=== PATIENT | female | born 1945 | race Caucasian/White ===

== ENCOUNTER → 2023-05-16 11:53 | Outpatient (REF) | payer OTHER, SELFPAY ==
[2023-05-16 12:05] LABS: Blood Urea Nitrogen 10 mg/dl (7-17); Carbon Dioxide 25 mmol/L (22-30); Chloride 100 mmol/L (98-107); Glomerular Filtration Rate > 60.0; Glucose 119 mg/dl (70-99); Potassium 4.1 mmol/L (3.5-5.1); Sodium 135 mmol/L (135-145)
== END ==
LOC: OIDL 11:53
PROVIDERS: ATTENDING PHYSICIAN Internal Medicine Hematology & Oncology
DX: C50.912 Malignant neoplasm of unspecified site of left female breast (principal)
CPT/HCPCS: 80048

== ENCOUNTER 2023-08-21 09:30 | Emergency (ER) | payer OTHER, SELFPAY ==
[2023-08-21] VITALS (12 sets, daily range): BP systolic 79–136; BP diastolic 44–99; PULSE 78–90; BMI 23.2
--- NOTE | 2023-08-21 10:00 | EDRN ---
IV team paged to come access patient's port. Patient assisted to bedside commode. Patient stated that she felt slightly dizzy when she stood up.
--- NOTE | 2023-08-21 11:05 | VATNOTE ---
Left chest SQ port access as requested. Flushes well, unable to withdraw labs despite normal efforts. Patient states port has need TPA in the past. PCN updated, request made for Ellis hassan.
--- NOTE | 2023-08-21 11:43 | ED.GENMED ---
History of Present Illness
General
Chief Complaint: Dizziness
Source: patient and spouse
Exam Limitations: none
Time Seen by Provider: 08/21/23 11:13
Nursing documentation reviewed up to this point in time: agreed with
Travel History
Have you had any contact with someone who has COVID-19?: No
Do you have any symptoms of coronavirus? Fever > 100 degrees, chills, cough, shortness of breath, sore throat, loss of taste or smell, muscle aches, or headache?: No
History of Present Illness
History of Present Illness:
78-year-old female with metastatic breast CA under the care of Dr. Briones oncology currently receiving chemotherapy Orserdu for the past 2 months presents because states he called EMS due to the fact that the patient had several episodes
of shaking, eyes rolling back, significant weakness. Patient both agree that she gets these episodes intermittently and after receiving IV fluids she 'snaps out of it' and feels better. Pt states 'I have orthostatic problems.' She did have
IV fluid infusion 4 days ago through her left upper chest wall port after similar episode and felt better afterwards.
Denies fever/chills, denies n/v/d/c. Denies UTI symptoms.
Did start medical marijuana yesterday 5 mg q 4 hr prn and had two doses that states 'knocked her senseless' and she slept all day. Being weaned off Oxycodone.
Last visit with Oncology [facility]INE [facility]ER 2 weeks ago, aware of these episodes
Next visit with Dr. Briones
Past History
Past History
ED Past Medical History: Cancer (Metastatic breast cancer) and COPD
ED Past Surgical History: Appendectomy, Orthopedic and Other (b/l lumpectomy)
Social History
Tobacco: Former smoker
Alcohol: None
Drug: None
Personal:
Living: with family
Employment: Not employed
Family History
Family History: Other (n/c)
Review of Systems
Review of Systems
Allergies reviewed?: Yes
All Other Systems: ROS reviewed and negative except as documented in HPI and ROS
Constitutional: Reports fatigue; Denies fever
EENT: Denies sore throat
Respiratory: Denies cough or trouble breathing
Cardiac: Denies chest pain or syncope
ABD/GI: Denies abdominal pain, nausea, vomiting, diarrhea or constipated
: Denies dysuria, difficulty voiding or urgency
Musculoskeletal: Reports no symptoms
Skin: Reports no symptoms
Neurological: Reports weakness (Generalized weakness)
Phy Exam
Physical Exam
Physical Exam:
GENERAL: No acute distress. A&Ox3. Cachectic appearing.
CONSTITUTIONAL: Afebrile.
EYES: PERRL, conjunctivae normal
ENMT: dry mucus membranes
RESPIRATORY: Regular respirations, nonlabored, lungs clear.
CARDIOVASCULAR: Regular rate and rhythm, no murmurs, no rubs.
GI: Soft, nontender, normal BS
MUSCULOSKELETAL: Moves with ease. Well perfused.
SKIN: Warm, dry, pink. Access port left upper chest wall.
PSYCH: Normal mood and affect. Well kept, interactive and appropriate
NEUROLOGIC: Awake, alert and oriented. No focal neurological deficits
Course
Orders/Labs/Results
Orders:
Orders
08/21/23 09:47
EKG [Electrocardiogram (*1)] Urgent
Reason for Study: Vertigo / Dizzy
EKG- Treatment ONCE
08/21/23 11:40
Lorazepam [Ativan] 0.5 mg PO NOW STA
Oxycodone [Roxicodone] 5 mg PO NOW STA
08/21/23 11:53
CMP [Comprehensive Metabolic Panel] Urgent
Complete Blood Count/With Diff Urgent
08/21/23 11:59
0.9% Sodium Chloride 1000 ml [Nss] 1,000 ml IV BOLUS
08/21/23 13:02
Alteplase [Cathflo/Activase] 2 mg IV NOW STA
08/21/23 14:58
Case Management Consult ONCE
Case Management Consult: Discharge Planning
Requested By:: PHYSICIAN
08/21/23 15:42
Heparin Pf [Heparin Lock Flush] 500 unit IV NOW ONE
Abnormal Lab Results
08/21/23
11:53
Absolute Neuts (auto) 7.3 H 10^3/uL
(1.4-6.5)
Absolute Monos (auto) 0.9 H 10^3/uL
(0.1-0.6)
Glucose 114 H mg/dl
(70-99)
Calcium 10.3 H mg/dl
(8.4-10.2)
AST 37 H U/L
(14-36)
08/21/23 11:53
08/21/23 11:53
Vital Signs
Initial and Last Documented VS:
Initial Vital Signs
Temp Pulse Resp BP Pulse Ox
97.8 F 74 20 84/71 98
08/21/23 09:39 08/21/23 09:39 08/21/23 09:39 08/21/23 09:39 08/21/23 09:39
Last Documented Vital Signs
Temp Pulse Resp BP Pulse Ox
98.1 F 79 18 99/59 99
08/21/23 16:04 08/21/23 16:04 08/21/23 16:04 08/21/23 15:23 08/21/23 16:04
MDM/Problems Addressed
Differential Diagnosis Includes:
Dehydration
MDM/Problems Addressed:
78-year-old female with metastatic breast CA under the care of Dr. Briones oncology currently receiving chemotherapy Orserdu for the past 2 months presents because states he called EMS due to the fact that the patient had several episodes
of shaking, eyes rolling back, significant weakness. Patient both agree that she gets these episodes intermittently and after receiving IV fluids she 'snaps out of it' and feels better. Pt states 'I have orthostatic problems.' She did have
IV fluid infusion 4 days ago through her left upper chest wall port after similar episode and felt better afterwards.
Denies fever/chills, denies n/v/d/c. Denies UTI symptoms.
Did start medical marijuana yesterday 5 mg q 4 hr prn and had two doses that states 'knocked her senseless' and she slept all day. Being weaned off Oxycodone.
Last visit with Oncology [facility] [facility] [facility]ER 2 weeks ago, aware of these episodes
Next visit with Dr. Briones is
EKG normal sinus rhythm, L axis dev, no change
08/21/2023 1302 PM
CBC normal
CMP normal
08/21/2023 1444 PM
After 1 L of IV fluids patient states she is feeling much better. She is sitting up and eating a salad and drinking
Since she feels so much better after IV fluids when she has these episodes, she and her are wondering if she can get IV fluids on a regular basis perhaps at home with visiting nurse as opposed to having to go into oncology office consulted
Dr. Briones
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
Patient is already down 60% with her narcotic use.
Taking Midodrine as ordered.
Does not meet criteria for home IV infusions.
Pt is in Palliative Care with Dr. Robledo
states daughter stayed with them in July but now he is home alone with her and is afraid he won't be able to help her during these episodes, or when she gets up at night to go to [facility] he needs help, etc
They both agree that they could do some help at home
Consulted Case Management to see if can get help at home.
08/21/2023 1524 PM
Case Management in , info provided to .
They are comfortable going home
Has appt. with Dr. Briones in 6 days.
*EKG
EKG Intrepretation Date: 08/21/23
Interpretation: abnormal
Comparison EKG: no changes
Rate: normal
Rhythm: sinus
Shoals: left axis deviation
Interval: normal interval
QRS Pattern: normal QRS
Ischemia: no ischemia
*Critical Care Note
Total Time (30-74mins, 75-104mins- exclusive of procedures): Not Applicable
ED Attending Note
-
Portions of this chart may have been created with voice recognition software.� Occasional wrong word or��sound alike� substitutions may have occurred due to the inherent limitations of voice recognition software.
Discharge Plan
Departure
Patient Disposition: Home (Routine Discharge)
Date of Disposition: 08/21/23
Time of Disposition: 15:20
Patient with high blood pressure during this ER visit?: No
Condition: Good
Discharge Problem:
Episode of generalized weakness
Instructions: Generalized Weakness
Prescriptions:
No Action
aspirin 81 MG tablet,delayed release (DR/EC)
81 mg PO QPM
citalopram 20 MG tablet
20 mg PO DAILY
omeprazole 20 MG capsule,delayed release(DR/EC)
20 mg PO BID
melatonin 5 MG tablet
5 mg PO HS
famotidine 40 mg Tablet
40 mg PO QPM
Gentle Iron 28 mg iron-60mg -400 mcg-8 mcg Capsule
1 cap PO QPM
Xgeva 120 mg/1.7 mL (70 mg/mL) Solution
120 mg SC Q4W
Probiotic
755 mg PO QPM
levalbuterol tartrate 45 mcg/actuation Hfa Aerosol Inhaler
2 puff INHALATION R Q4HPRN PRN (Reason: sob)
sennosides [Senokot] 8.6 mg Tablet
8.6 mg PO BID PRN (Reason: Constipation)
glucosamine sulfate [Glucosamine] 500 mg Tablet
500 mg PO QPM
therapeutic multivitamin Tablet
1 tab PO DAILY
simvastatin 40 mg Tablet
40 mg PO QPM
acetaminophen 650 mg Tablet Extended Release
1,300 mg PO BIDPRN PRN (Reason: mild pain)
lorazepam 0.5 mg Tablet
0.5 mg PO HS PRN (Reason: anxiety)
Patient Comments:
07/25/2023: last filled 05/31/23, 30 tabs for 30 days
calcium carbonate 500 mg calcium (1,250 mg) Tablet
500 mg PO BID
docusate sodium [Stool Softener] 100 mg Capsule
100 mg PO BID PRN (Reason: Constipation)
gabapentin 100 mg Capsule
200 mg PO DAILY
bupropion HCl 150 mg Tablet Extended Release 24 Hr
150 mg PO DAILY
cholecalciferol (vitamin D3) 50 mcg (2,000 unit) Tablet
75 mcg PO DAILY
fluticasone furoate-vilanterol [Breo Ellipta] 100-25 mcg/dose Blister With Device
1 inh INHALATION R DAILY
Patient Comments:
05/21/2023, patient states that they should take this every day but that they forget sometimes.
Ellura capsule
36 mg PO QPM
methenamine hippurate 1 gram tablet
1 g PO BID
gabapentin 100 mg capsule
300 mg PO QPM
oxycodone 5 mg tablet
5 mg PO Q4H
Patient Comments:
07/25/2023: last filled 07/20/23, 180 tabs for 30 days from [id number]
Rx Instructions:
@0130,0530,0930,1330,1730,2130
midodrine 10 mg tablet
10 mg PO TID
Phosphorus
200 mg PO DAILY
levothyroxine 100 mcg capsule
100 mcg PO DAILY Qty: 30 0RF
Rx Instructions:
dose decreased on this admission
Referrals:
Namrata Briones MD [Active] - Keep scheduled appt
Gely Horvath, [Family Provider] -
Activity Restrictions/Additional Instructions:
As we discussed, your lab work shows nothing worrisome.
Continue to drink as much as you can.
Keep your appointment with Dr. Briones next week.
Interventions
Interventions:
*Risk Screen - Suicide Last Done: 08/21/23 09:39
*General Assessment Last Done: 08/21/23 10:09
*Neglect/Abuse Screening Last Done: 08/21/23 09:39
ED- Fall Risk Assessment Last Done: 08/21/23 10:09
*ED COVID-19 Vaccine History Last Done: 08/21/23 09:39
*Nursing Disposition Last Done: 08/21/23 16:04
ED- Neurological Assessment Last Done: 08/21/23 10:09
ED- Cardiac Assessment Last Done: 08/21/23 10:09
ED Swallowing Screen Last Done: 08/21/23 11:59
Discharge Date and Time
Discharge Date/Time: 08/21/23 16:05
[2023-08-21] MEDS: ROXICODONE 5 MG PO (12:01)
[2023-08-21] MEDS: ATIVAN 0.5 MG PO (12:01)
[2023-08-21] MEDS: NSS 1000 IV (12:07)
[2023-08-21 12:08] LABS: % Basophils 0.6 % (0-2); % Immature Granulocytes 0.4 % (0-0.5); % Lymphocytes 20.6 % (20.5-51.1); % Monocytes 8.3 % (1.7-9.3); % Neutrophils 69.1 % (42.2-75.2); Absolute Basophils 0.1 10^3/uL (0-0.2); Absolute Eosinophils 0.1 10^3/uL (0-0.7); Absolute Lymphocytes 2.2 10^3/uL (1.2-3.4); Absolute Monocytes 0.9 10^3/uL (0.1-0.6); Absolute Neutrophils 7.3 10^3/uL (1.4-6.5); Hematocrit 43.3 % (37.0-47.0); Hemoglobin 14.4 g/dL (12.0-16.0); Mean Corp Hgb Conc. 33.3 g/dL (33.0-37.0); Mean Corpuscular Volume 93.3 fL (81.0-99.0); Mean Platelet Volume 9.6 fL (7.4-10.4); Nucleated Red Blood Cells % 0 %; Platelet Count 268 10^3/uL (130-400); Red Blood Cell Count 4.64 10^6/uL (4.20-5.40); White Blood Cell Count 10.6 10^3/uL (4.8-10.8)
[2023-08-21 12:23] LABS: ALT (SGPT) 19 U/L (0-35); AST (SGOT) 37 U/L (14-36); Albumin 3.8 g/dl (3.5-5.0); Alkaline Phosphatase 93 U/L (38-126); Blood Urea Nitrogen 11 mg/dl (7-17); Calcium 10.3 mg/dl (8.4-10.2); Carbon Dioxide 30 mmol/L (22-30); Chloride 102 mmol/L (98-107); Estimated Creatinine Clearance 45 ml/min; Glucose 114 mg/dl (70-99); Potassium 4.6 mmol/L (3.5-5.1); Sodium 135 mmol/L (135-145); Total Bilirubin 0.7 mg/dl (0.2-1.3); Total Protein 6.6 g/dl (6.3-8.2); eGFR > 60.00
[2023-08-21] MEDS: CATHFLO/ACTIVASE 2 MG IV (13:21)
--- NOTE | 2023-08-21 14:36 | VATNOTE ---
CathFlo given per order. Port now with brisk blood return. PCN updated.
--- NOTE | 2023-08-21 15:22 | CM ---
CM met with patient and in room. stated that he feels that patient's physical needs are becoming increasingly more difficult and would like assistance in the home. CM confirmed that patient is on service with Palliative Care and
[facility]. CM provided with written materials regarding private pay aide care.
CM will update [facility] with today's visit.
CM updated ED [employer]PERATOR.
--- NOTE | 2023-08-21 15:47 | VATNOTE ---
left subq power port deaccessed per protocol. Brisk blood return noted prior to. at bedside.
== END 2023-08-21 16:05 | disposition home or self-care (01) ==
LOC: EMR 09:30
PROVIDERS: EMERGENCY PHYSICIAN Emergency Medicine; FAMILY PHYSICIAN Family Medicine
DX: R53.1 Weakness (principal); J44.9 Chronic obstructive pulmonary disease, unspecified; Z85.3 Personal history of malignant neoplasm of breast; Z87.891 Personal history of nicotine dependence; Z90.49 Acquired absence of other specified parts of digestive tract
CPT/HCPCS: 99283; 96374; 96375; 96361; 80053; 85025; 93005; J2997

== ENCOUNTER → 2023-08-23 10:45 | Outpatient (REF) | payer OTHER, SELFPAY | LOC: PET 10:45 | PROVIDERS: ATTENDING PHYSICIAN Internal Medicine Hematology & Oncology | DX: C50.912 Malignant neoplasm of unspecified site of left female breast (principal) | CPT/HCPCS: 78815; A9552 ==

== ENCOUNTER 2023-08-26 11:18 | Emergency (ER) | payer OTHER, SELFPAY ==
[2023-08-26] VITALS (11 sets, daily range): BP systolic 86–169; BP diastolic 52–84; PULSE 53–62; BMI 24.3
[2023-08-26] MEDS: NSS 1000 IV (13:08)
[2023-08-26] MEDS: ProAmatine 10 MG PO (13:08)
--- NOTE | 2023-08-26 13:12 | ED.GENMED ---
History of Present Illness
General
Chief Complaint: Blood Pressure Problem
Source: patient
Exam Limitations: none
Time Seen by Provider: 08/26/23 12:53
Travel History
Have you had any contact with someone who has COVID-19?: No
Do you have any symptoms of coronavirus? Fever > 100 degrees, chills, cough, shortness of breath, sore throat, loss of taste or smell, muscle aches, or headache?: No
History of Present Illness
History of Present Illness:
78-year-old female with known history of metastatic breast cancer presents with recurrent orthostatic hypotension and syncopal episode today getting out of bed. She denies headache chest pain or shortness of breath. She is on midodrine 10 mg 3
times a day. They spoke with oncology and they referred her here for further evaluation. She has known mets to the liver and pelvis.
Past History
Past History
ED Past Medical History: Cancer (Metastatic breast cancer) and COPD
ED Past Surgical History: Appendectomy, Orthopedic and Other (b/l lumpectomy)
Social History
Tobacco: Former smoker
Alcohol: None
Drug: None
Personal:
Living: with family
Employment: Not employed
Family History
Family History: Other (n/c)
Phy Exam
Physical Exam
Physical Exam:
General: Well-appearing female no acute respiratory distress
HEENT: Normocephalic atraumatic
Heart: RRR, no murmurs
Lungs; CTA bilaterally
Abd: soft, nontender, nondistended
Neuro: Alert and oriented x 3.
Ext: no cyanosis
Skin; Warm, no rashes or lesions.
Course
Orders/Labs/Results
Orders:
Orders
08/26/23 12:39
Electrocardiogram (*1) Urgent
Reason for Study: Syncope
08/26/23 12:40
EKG- Treatment ONCE
08/26/23 13:03
0.9% Sodium Chloride 1000 ml [Nss] 1,000 ml IV BOLUS
Midodrine [ProAmatine] 10 mg PO NOW STA
08/26/23 13:11
CT Head W/o Iv Contrast Urgent
Comment:
Reason For Exam: syncope, history of breast CA
08/26/23 13:32
CMP [Comprehensive Metabolic Panel] Urgent
Complete Blood Count/With Diff Urgent
Abnormal Lab Results
08/26/23
13:32
RBC 4.13 L 10^6/uL
(4.20-5.40)
MCH 31.5 H pg
(27.0-31.0)
Absolute Monos (auto) 0.9 H 10^3/uL
(0.1-0.6)
Sodium 134 L mmol/L
(135-145)
Carbon Dioxide 34 H mmol/L
(22-30)
Glucose 130 H mg/dl
(70-99)
Total Protein 6.0 L g/dl
(6.3-8.2)
Albumin 3.4 L g/dl
(3.5-5.0)
08/26/23 13:32
08/26/23 13:32
Vital Signs
Initial and Last Documented VS:
Initial Vital Signs
Temp Pulse Resp BP Pulse Ox
98.8 F 59 18 114/76 100
08/26/23 11:27 08/26/23 11:27 08/26/23 11:27 08/26/23 11:27 08/26/23 11:27
Last Documented Vital Signs
Temp Pulse Resp BP Pulse Ox
98.8 F 56 16 120/59 96
08/26/23 11:27 08/26/23 14:15 08/26/23 14:15 08/26/23 14:00 08/26/23 14:15
MDM/Problems Addressed
Differential Diagnosis Includes:
Syncope. Likely orthostatic hypotension. Will check a EKG for arrhythmia placed on monitor. She will have her port accessed and will hydrate and do CT of head.
*Critical Care Note
Total Time (30-74mins, 75-104mins- exclusive of procedures): Not Applicable
Update Note
Update Note:
CT head negative. Patient feeling much better after IV hydration. Tolerating fluids. Blood pressure improved. Suspect underlying volume depletion and dehydration. Stable for discharge with oncology follow-up
ED Attending Note
-
Portions of this chart may have been created with voice recognition software.� Occasional wrong word or��sound alike� substitutions may have occurred due to the inherent limitations of voice recognition software.
Discharge Plan
Departure
Patient Disposition: Home (Routine Discharge)
Date of Disposition: 08/26/23
Time of Disposition: 15:09
Patient with high blood pressure during this ER visit?: No
Discharge Problem:
Acute dehydration
Prescriptions:
No Action
aspirin 81 MG tablet,delayed release (DR/EC)
81 mg PO QPM
citalopram 20 MG tablet
20 mg PO DAILY
omeprazole 20 MG capsule,delayed release(DR/EC)
20 mg PO BID
melatonin 5 MG tablet
5 mg PO HS
famotidine 40 mg Tablet
40 mg PO QPM
Gentle Iron 28 mg iron-60mg -400 mcg-8 mcg Capsule
1 cap PO QPM
Xgeva 120 mg/1.7 mL (70 mg/mL) Solution
120 mg SC Q4W
Probiotic
755 mg PO QPM
levalbuterol tartrate 45 mcg/actuation Hfa Aerosol Inhaler
2 puff INHALATION R Q4HPRN PRN (Reason: sob)
sennosides [Senokot] 8.6 mg Tablet
8.6 mg PO BID PRN (Reason: Constipation)
glucosamine sulfate [Glucosamine] 500 mg Tablet
500 mg PO QPM
therapeutic multivitamin Tablet
1 tab PO DAILY
simvastatin 40 mg Tablet
40 mg PO QPM
acetaminophen 650 mg Tablet Extended Release
1,300 mg PO BIDPRN PRN (Reason: mild pain)
lorazepam 0.5 mg Tablet
0.5 mg PO HS PRN (Reason: anxiety)
Patient Comments:
07/25/2023: last filled 05/31/23, 30 tabs for 30 days
calcium carbonate 500 mg calcium (1,250 mg) Tablet
500 mg PO BID
docusate sodium [Stool Softener] 100 mg Capsule
100 mg PO BID PRN (Reason: Constipation)
gabapentin 100 mg Capsule
200 mg PO DAILY
bupropion HCl 150 mg Tablet Extended Release 24 Hr
150 mg PO DAILY
cholecalciferol (vitamin D3) 50 mcg (2,000 unit) Tablet
75 mcg PO DAILY
fluticasone furoate-vilanterol [Breo Ellipta] 100-25 mcg/dose Blister With Device
1 inh INHALATION R DAILY
Patient Comments:
05/21/2023, patient states that they should take this every day but that they forget sometimes.
Ellura capsule
36 mg PO QPM
methenamine hippurate 1 gram tablet
1 g PO BID
gabapentin 100 mg capsule
300 mg PO QPM
oxycodone 5 mg tablet
5 mg PO Q4H
Patient Comments:
07/25/2023: last filled 07/20/23, 180 tabs for 30 days from [facility]#[id number]
Rx Instructions:
@0130,0530,0930,1330,1730,2130
midodrine 10 mg tablet
10 mg PO TID
Phosphorus
200 mg PO DAILY
levothyroxine 100 mcg capsule
100 mcg PO DAILY Qty: 30 0RF
Rx Instructions:
dose decreased on this admission
Referrals:
Newingham,Gely, DO [Family Provider] -
Activity Restrictions/Additional Instructions:
Please follow-up with your oncologist for further evaluation. Return if needed otherwise.
Interventions
Interventions:
*Risk Screen - Suicide Last Done: 08/26/23 12:33
*General Assessment Last Done: 08/26/23 12:33
*Neglect/Abuse Screening Last Done: 08/26/23 12:33
ED- Fall Risk Assessment Last Done: 08/26/23 12:36
*ED COVID-19 Vaccine History Last Done: 08/26/23 12:33
ED- Cardiac Assessment Last Done: 08/26/23 12:37
ED- Neurological Assessment Last Done: 08/26/23 12:37
ED- Pulmonary Assessment Last Done: 08/26/23 12:37
[2023-08-26 13:47] LABS: % Basophils 0.8 % (0-2); % Eosinophils 2.3 % (0-6); % Immature Granulocytes 0.3 % (0-0.5); % Lymphocytes 24.4 % (20.5-51.1); % Monocytes 8.9 % (1.7-9.3); % Neutrophils 63.3 % (42.2-75.2); Absolute Basophils 0.1 10^3/uL (0-0.2); Absolute Eosinophils 0.2 10^3/uL (0-0.7); Absolute Lymphocytes 2.4 10^3/uL (1.2-3.4); Absolute Monocytes 0.9 10^3/uL (0.1-0.6); Absolute Neutrophils 6.3 10^3/uL (1.4-6.5); Hematocrit 38.4 % (37.0-47.0); Mean Corp Hgb Conc. 33.9 g/dL (33.0-37.0); Mean Corpuscular Hgb 31.5 pg (27.0-31.0); Mean Platelet Volume 9.5 fL (7.4-10.4); Nucleated Red Blood Cells % 0 %; Platelet Count 261 10^3/uL (130-400); Red Blood Cell Count 4.13 10^6/uL (4.20-5.40); Red Cell Dist. Width 12.9 % (11.5-14.5)
[2023-08-26 13:52] LABS: ALT (SGPT) 19 U/L (0-35); AST (SGOT) 34 U/L (14-36); Albumin 3.4 g/dl (3.5-5.0); Alkaline Phosphatase 89 U/L (38-126); Blood Urea Nitrogen 12 mg/dl (7-17); Calcium 9.9 mg/dl (8.4-10.2); Carbon Dioxide 34 mmol/L (22-30); Chloride 101 mmol/L (98-107); Estimated Creatinine Clearance 45 ml/min; Glucose 130 mg/dl (70-99); Potassium 4.1 mmol/L (3.5-5.1); Sodium 134 mmol/L (135-145); Total Bilirubin 0.5 mg/dl (0.2-1.3); eGFR > 60.00
--- NOTE | 2023-08-26 16:43 | VATNOTE ---
Prior to deaccessing pt's port, flushed with 500 units in 5 mL heparin.
== END 2023-08-26 16:58 | disposition home or self-care (01) ==
LOC: EMR 11:18
PROVIDERS: EMERGENCY PHYSICIAN Emergency Medicine; FAMILY PHYSICIAN Family Medicine
DX: R55 Syncope and collapse (principal); E86.0 Dehydration; I95.1 Orthostatic hypotension; C50.919 Malignant neoplasm of unspecified site of unspecified female breast; C78.7 Secondary malignant neoplasm of liver and intrahepatic bile duct; J44.9 Chronic obstructive pulmonary disease, unspecified; Z87.891 Personal history of nicotine dependence; Z79.82 Long term (current) use of aspirin; Z88.0 Allergy status to penicillin
CPT/HCPCS: 99285; 96360; 70450; 80053; 85025; 93005

== ENCOUNTER 2023-08-27 23:29 | Inpatient (IN) | payer OTHER, SELFPAY ==
[2023-08-27 19:20] VITALS: BP 120/72
[2023-08-27 19:21] VITALS: BP 120/72
[2023-08-27 19:48] LABS: % Basophils 0.6 % (0-2); % Eosinophils 1.9 % (0-6); % Immature Granulocytes 0.3 % (0-0.5); % Lymphocytes 38.4 % (20.5-51.1); % Monocytes 10.6 % (1.7-9.3); % Neutrophils 48.2 % (42.2-75.2); Absolute Basophils 0.1 10^3/uL (0-0.2); Absolute Eosinophils 0.2 10^3/uL (0-0.7); Absolute Monocytes 1.1 10^3/uL (0.1-0.6); Mean Corp Hgb Conc. 34.2 g/dL (33.0-37.0); Mean Corpuscular Hgb 31.1 pg (27.0-31.0); Mean Corpuscular Volume 90.9 fL (81.0-99.0); Mean Platelet Volume 9.5 fL (7.4-10.4); Nucleated Red Blood Cells % 0 %; Platelet Count 294 10^3/uL (130-400); Red Blood Cell Count 4.18 10^6/uL (4.20-5.40); White Blood Cell Count 10.5 10^3/uL (4.8-10.8)
[2023-08-27 20:00] VITALS: BP 106/91
[2023-08-27 20:00] LABS: ALT (SGPT) 17 U/L (0-35); AST (SGOT) 28 U/L (14-36); Albumin 3.2 g/dl (3.5-5.0); Alkaline Phosphatase 82 U/L (38-126); Blood Urea Nitrogen 12 mg/dl (7-17); Calcium 9.5 mg/dl (8.4-10.2); Carbon Dioxide 22 mmol/L (22-30); Chloride 103 mmol/L (98-107); Glucose 111 mg/dl (70-99); Potassium 3.8 mmol/L (3.5-5.1); Sodium 134 mmol/L (135-145); Total Bilirubin 0.6 mg/dl (0.2-1.3); Total Protein 5.9 g/dl (6.3-8.2); eGFR > 60.00
[2023-08-27 20:10] LABS: Troponin I < 0.012 ng/ml
[2023-08-27] MEDS: NSS 1000 IV (21:53)
[2023-08-27 22:09] LABS: Urine Albumin Negative (Neg - Trace); Urine Bilirubin Negative (Negative); Urine Character Slightly Cloudy (Clear); Urine Color Yellow; Urine Glucose Negative (Negative); Urine Ketone 2+ (Negative); Urine Leukocyte 1+ (Negative); Urine Nitrite Negative (Negative); Urine Occult Blood Negative (Negative); Urine Urobilinogen Negative (Neg - 1+)
--- NOTE | 2023-08-27 22:11 | ED.GENMED ---
History of Present Illness
General
Chief Complaint: Fainting/Passed Out
Source: patient
Time Seen by Provider: 08/27/23 20:12
Travel History
Have you had any contact with someone who has COVID-19?: No
Do you have any symptoms of coronavirus? Fever > 100 degrees, chills, cough, shortness of breath, sore throat, loss of taste or smell, muscle aches, or headache?: No
History of Present Illness
History of Present Illness:
Female presents after having episode of syncope and confusion at home. Patient has metastatic breast cancer. She has had several hospitalizations for similar symptoms. However states the patient level of activity is declining. He cannot
care for her this date. She is receiving Elacestrant to treat her metastatic breast cancer. Presents emergency room there is a pathologic process as being 'missed'. Patient is unable to provide any history due to confusion, nausea
Past History
Past History
ED Past Medical History: Cancer (Metastatic breast cancer) and COPD
ED Past Surgical History: Appendectomy, Orthopedic and Other (b/l lumpectomy)
Social History
Tobacco: Former smoker
Alcohol: None
Drug: None
Personal:
Living: with family
Employment: Not employed
Family History
Family History: Other (n/c)
Phy Exam
Physical Exam
Physical Exam:
General: Awake, Alert, Oriented X2. Cachectic, chronically ill-appearing, seems uncomfortable
Vitals: unremarkable
Head: Atraumatic
Eyes: Pupils equal, EOMI
Throat: Airway intact, no exudates, dry mucous
Neck: Trachea midline
Lungs: Clear and equal b/l
Heart: Regular rate, no murmurs
Abd: Soft, Nontender, No pulsatile mass
Neuro: Nonfocal
Skin: Warm, dry, no rash
Extremities: pulses equal b/l, no edema
Course
Orders/Labs/Results
Orders:
Orders
08/27/23 19:27
Electrocardiogram (*1) Urgent
Reason for Study: Fatigue / Weakness
08/27/23 19:28
EKG- Treatment ONCE
08/27/23 19:31
Complete Blood Count/With Diff Urgent
Comprehensive Metabolic Panel Urgent
Troponin I Urgent
08/27/23 19:58
Electrocardiogram (*1) Urgent
Reason for Study: Fatigue / Weakness
EKG- Treatment ONCE
08/27/23 21:36
0.9% Sodium Chloride 1000 ml [Nss] 1,000 ml IV BOLUS
08/27/23 22:02
Urinalysis Reflex To Culture Urgent
Date Specimen was Collected: 08/27/23
Time Specimen was Collected: 22:01
Urine Microscopic Reflex Cult Urgent
Urine Culture Urgent
AUBREY Source: U
Specimen Description:
Date Specimen was Collected: 08/27/23
Time Specimen was Collected: 22:01
08/27/23 23:11
Admit/Transfer Patient As Directed
Co-Sign Provider:
Level of Care: Inpatient admission
Assign to:: Telemetry
Physician / Group: Christen
Diagnosis: Orthostatic Hypotension
Reason for Telemetry: Syncope
Date to Stop Telemetry: 08/29/23
Time to Stop Telemetry: 11:00
Reason for Hospitalization: IVFs
Expected length of stay greater than two midnights?: Yes
ELOS- Estimated Length of Stay in days: 3
I certify the patient meets the requirements for IP care: Yes
08/27/23 23:13
Code Status As Directed
Resuscitation Status: Do not resuscitate
Reached after discussion with pt or family/Healthcare POA: Yes
DNR Bracelet Application ONCE
08/27/23 23:21
Oxycodone [Roxicodone] 5 mg PO NOW STA
08/29/23 11:00
DC Protocol for Telemetry ONCE
Abnormal Lab Results
08/27/23 08/27/23
19:31 22:02
RBC 4.18 L 10^6/uL
(4.20-5.40)
MCH 31.1 H pg
(27.0-31.0)
Absolute Lymphs (auto) 4.0 H 10^3/uL
(1.2-3.4)
Absolute Monos (auto) 1.1 H 10^3/uL
(0.1-0.6)
Monocytes % 10.6 H %
(1.7-9.3)
Sodium 134 L mmol/L
(135-145)
Glucose 111 H mg/dl
(70-99)
Total Protein 5.9 L g/dl
(6.3-8.2)
Albumin 3.2 L g/dl
(3.5-5.0)
Urine Ketones 2+ A
(Negative)
Leukocyte Esterase Rfl 1+ A
(Negative)
Urine WBC (Reflex) 16-20 A /HPF
(0-5)
08/27/23 19:31
08/27/23 19:31
Vital Signs
Initial and Last Documented VS:
Initial Vital Signs
Temp Pulse Resp BP Pulse Ox
98.1 F 73 18 120/72 99
08/27/23 19:20 08/27/23 19:20 08/27/23 19:20 08/27/23 19:20 08/27/23 19:20
Last Documented Vital Signs
Temp Pulse Resp BP Pulse Ox
98.1 F 69 14 106/91 99
08/27/23 19:20 08/27/23 22:00 08/27/23 22:00 08/27/23 20:00 08/27/23 22:00
MDM/Problems Addressed
Differential Diagnosis Includes:
Anemia, dehydration, electrolyte abnormality, progression of metastatic breast cancer
MDM/Problems Addressed:
Patient presents after suffering another episode that she becomes unresponsive with her eyes rolling. She is unable to independently perform any activities at home. Patient's states she is much more confused than baseline as well. This is
the third visit to the emergency room for several days. No fever here. Hemoglobin is normal. Electrolytes, renal function etc. are all reassuring. Urine has elevated number white blood cells but there is also an elevated number of squamous
epithelial cells suggesting a contaminated urine. Patient had a head CT yesterday during an ER visit. Patient is suffering from significant decline in health. Seems unsafe to discharge the patient to her who essentially cannot care for
her any longer in her current state. During hospitalization consideration for admission to halfway or hospice is likely.
*Pulse Oximetry
Patient hypoxic: no
*EKG
Interpreted by ED Provider?: Yes
Interpretation: normal
Heart Rate: 70
Rate: normal
Rhythm: sinus
Forest: normal axis
Interval: normal interval
QRS Pattern: normal QRS
Ischemia: no ischemia
*Centerless Grinder Operator Interpretation
Rate: normal
Interpretation: normal
Rhythm: sinus
*Critical Care Note
Total Time (30-74mins, 75-104mins- exclusive of procedures): Not Applicable
ED Attending Note
-
Portions of this chart may have been created with voice recognition software.� Occasional wrong word or��sound alike� substitutions may have occurred due to the inherent limitations of voice recognition software.
Discharge Plan
Departure
Patient Disposition: Admit
Date of Disposition: 08/27/23
Time of Disposition: 22:11
Admit to: Med/Surg
Presentation/result/management discussed w/ accepting MD/DO: Hospitalist
Condition: Fair
Discharge Problem:
Syncope, Orthostasis
Prescriptions:
No Action
aspirin 81 MG tablet,delayed release (DR/EC)
81 mg PO QPM
omeprazole 20 MG capsule,delayed release(DR/EC)
20 mg PO BID
melatonin 5 MG tablet
5 mg PO HS
famotidine 40 mg Tablet
40 mg PO QPM
Gentle Iron 28 mg iron-60mg -400 mcg-8 mcg Capsule
1 cap PO QPM
Xgeva 120 mg/1.7 mL (70 mg/mL) Solution
120 mg SC Q4W
Probiotic
755 mg PO QPM
levalbuterol tartrate 45 mcg/actuation Hfa Aerosol Inhaler
2 puff INHALATION R Q4HPRN PRN (Reason: sob)
sennosides [Senokot] 8.6 mg Tablet
8.6 mg PO BID PRN (Reason: Constipation)
glucosamine sulfate [Glucosamine] 500 mg Tablet
500 mg PO QPM
therapeutic multivitamin Tablet
1 tab PO DAILY
simvastatin 40 mg Tablet
40 mg PO QPM
acetaminophen 650 mg Tablet Extended Release
1,300 mg PO BIDPRN PRN (Reason: mild pain)
lorazepam 0.5 mg Tablet
0.5 mg PO HS PRN (Reason: anxiety)
Patient Comments:
07/25/2023: last filled 05/31/23, 30 tabs for 30 days
calcium carbonate 500 mg calcium (1,250 mg) Tablet
500 mg PO BID
docusate sodium [Stool Softener] 100 mg Capsule
100 mg PO BID PRN (Reason: Constipation)
gabapentin 100 mg Capsule
200 mg PO DAILY
bupropion HCl 150 mg Tablet Extended Release 24 Hr
150 mg PO DAILY
cholecalciferol (vitamin D3) 50 mcg (2,000 unit) Tablet
75 mcg PO DAILY
fluticasone furoate-vilanterol [Breo Ellipta] 100-25 mcg/dose Blister With Device
1 inh INHALATION R DAILY
Patient Comments:
05/21/2023, patient states that they should take this every day but that they forget sometimes.
Ellura capsule
36 mg PO QPM
methenamine hippurate 1 gram tablet
1 g PO BID
gabapentin 100 mg capsule
300 mg PO QPM
oxycodone 5 mg tablet
5 mg PO Q6H
Patient Comments:
07/25/2023: last filled 07/20/23, 180 tabs for 30 days from [id number]
Rx Instructions:
@0000,0600,1200,1800
midodrine 10 mg tablet
10 mg PO TID
Phosphorus
200 mg PO DAILY
levothyroxine 100 mcg capsule
100 mcg PO DAILY Qty: 30 0RF
Rx Instructions:
dose decreased on this admission
escitalopram oxalate 10 mg Tablet
10 mg PO DAILY
Orserdu 86 mg Tablet
172 mg PO DAILY
Rx Instructions:
Swallow tablet(s) whole. Do not chew, crush, or split prior to swallowing. Do not take any tablets that are broken, cracked, or that look damaged.
Referrals:
Gely Horvath DO [Family Provider] -
Interventions
Interventions:
*Risk Screen - Suicide Last Done: 08/27/23 19:20
*General Assessment Last Done: 08/27/23 19:20
*Neglect/Abuse Screening Last Done: 08/27/23 19:20
*ED COVID-19 Vaccine History Last Done: 08/27/23 19:53
ED- Cardiac Assessment Last Done: 08/27/23 19:28
ED- Neurological Assessment Last Done: 08/27/23 19:28
[2023-08-27 22:30] LABS: Urine Granular Cast 0-2 /LPF (0); Urine Red Blood Cell 0-2 /HPF (0-2); Urine Squamous Cell >30 /LPF (Few); Urine White Cell 16-20 /HPF (0-5)
--- NOTE | 2023-08-27 23:22 | HPS.HSE ---
Addendum entered and electronically signed by Subha Velásquez DO 08/28/23 07:02:
The patient is seen and examined. I have discussed the patient with Damaris, reviewed and agree with her history and physical, assessment and plan of care as per below.
VSS at time of my examination, AF, Patient is resting in NAD, Lungs CTA b/l, CV RRR, Abd soft, nt/nd, Ext no c/c/e, Neuro no focal deficitsl
Original Note:
Family Physician
-
Family Physician: Gely Horvath DO
Chief Complaint
-
Syncope
History of Present Illness
Pt is a 78yo F with a past medical history of metastatic breast cancer and COPD who is presenting to the ED complaining of a orthostasis. Pt is accompanied by her who acts as her automotive drivability technician. Pt has had several episodes of orthostasis which
her explains had previously been thought to be associated with her Orserdu which she was previously taking at the maximum dose. Her oncologist cut this back to half and she has still been experiencing these symptoms. Today upon standing she
had a syncopal episode, but upon lying down it took her an extended period of time to recover. She deneis chest pains or palpitations.
Medical History
Past Medical History
Past Medical History: Reports Cancer (Metastatic Breast), COPD and Hypothyroidism
Past Surgical History: Reports Appendectomy, Orthopedic and Other (Lumpectomy)
Social History
Tobacco: Former Smoker
Alcohol: None
Drug: None
Family History
Family History: Not pertinent
Allergies / Home Medications
Allergies reflects when Allergies were last updated in [employer] computer.
Home Medications with original date entered in [employer] computer
Allergy/Medication List:
Allergies
Allergy/AdvReac Type Severity Reaction Status Date / Time
Penicillins Allergy Unknown Unknown Verified 08/26/23 12:38
Home Medications
aspirin 81 mg tablet,delayed release 81 mg PO QPM Blood clot prevention/tx 02/22/15
omeprazole 20 mg capsule,delayed release 20 mg PO BID Gastrointestinal issue 02/22/15
melatonin 5 mg tablet 5 mg PO HS Sleep 04/27/21
Probiotic 755 mg PO QPM probiotic 04/27/23
denosumab 120 mg/1.7 mL (70 mg/mL) subcutaneous solution (Xgeva) 120 mg SC Q4W Cancer 04/27/23
famotidine 40 mg tablet 40 mg PO QPM Gastrointestinal Issue 04/27/23
iron bis glycinate morenita 28 mg iron-vit C 60 mg-FA 400 mcg-B12 8mcg cap (Gentle Iron) 1 cap PO QPM Supplement 04/27/23
levalbuterol tartrate 45 mcg/actuation aerosol inhaler 2 puff inhalation R Q4HPRN PRN sob 04/27/23
Ellura 36 mg PO QPM Urinary Issue 05/21/23
acetaminophen 650 mg tablet,extended release 1,300 mg PO BIDPRN PRN mild pain 05/21/23
bupropion HCl 150 mg 24 hr tablet, extended release 150 mg PO DAILY Mental Health/Anxiety 05/21/23
calcium carbonate 500 mg calcium (1,250 mg) tablet 500 mg PO BID Supplement 05/21/23
cholecalciferol (vitamin D3) 50 mcg (2,000 unit) tablet 75 mcg PO DAILY Supplement 05/21/23
docusate sodium 100 mg capsule (Stool Softener) 100 mg PO BID PRN Constipation 05/21/23
fluticasone furoate 100 mcg-vilanterol 25 mcg/dose inhalation powder (Breo Ellipta) 1 inh inhalation R DAILY Lung/Breathing Issues 05/21/23
gabapentin 100 mg capsule 200 mg PO DAILY Pain 05/21/23
glucosamine sulfate 500 mg tablet (Glucosamine) 500 mg PO QPM Supplement 05/21/23
lorazepam 0.5 mg tablet 0.5 mg PO HS PRN anxiety 05/21/23
sennosides 8.6 mg tablet (Senokot) 8.6 mg PO BID PRN Constipation 05/21/23
simvastatin 40 mg tablet 40 mg PO QPM High Cholesterol 05/21/23
therapeutic multivitamin 1 tab PO DAILY Supplement 05/21/23
Phosphorus 200 mg PO DAILY 07/25/23
gabapentin 100 mg capsule 300 mg PO QPM 07/25/23
methenamine hippurate 1 gram tablet 1 g PO BID 07/25/23
midodrine 10 mg tablet 10 mg PO TID 07/25/23
oxycodone 5 mg tablet 5 mg PO Q6H 07/25/23
levothyroxine 100 mcg capsule 100 mcg PO DAILY #30 caps 07/28/23
elacestrant 86 mg tablet (Orserdu) 172 mg PO DAILY 08/27/23
escitalopram oxalate 10 mg tablet 10 mg PO DAILY 08/27/23
Review of Systems
-
A 12 point ROS was completed and negative except as noted: Yes
Constitutional: Denies Fever or Chills
Respiratory: Denies Cough or Trouble Breathing
Cardiac: Denies Chest Pain or Palpitations
Abdomen/GI: Denies Abdominal Pain, Nausea, Vomiting or Diarrhea
Physical Exam
Vital Signs
Vital Signs
Temp Pulse Resp BP Pulse Ox
98.1 F 69 14 106/91 99
08/27/23 19:20 08/27/23 22:00 08/27/23 22:00 08/27/23 20:00 08/27/23 22:00
Physical Exam
General: Comfortable, Conversant and Appears Chronically Ill
HEENT: NormoCephalic and Atraumatic
Respiratory: Clear and Non Labored Respirations
Cardiac: S1/S2 and Regular Rhythm
GI: Soft and Non Tender
Rectal: Deferred by Provider
Musculoskeletal: No Clubbing, No Cyanosis and No Edema
Skin: Warm and Dry
Neuro: Awake, Alert, Oriented and Nonfocal/grossly intact
Psych: Calm
Laboratory Results
-
08/27/23 19:31
08/27/23 19:31
Laboratory Results
Total Bilirubin 0.6 mg/dl (0.2-1.3) 08/27/23 19:31
AST 28 U/L (14-36) 08/27/23:
ALT 17 U/L (0-35) 08/27/23 19:31
Alkaline Phosphatase 82 U/L (38-126) 08/27/23 19:
Troponin I < 0.012 ng/ml 08/27/23 19:31
Data Reviewed
-
Lab Data: Labs Reviewed by me
Old Records: Reviewed
Impression/Plan
-
Syncope secondary to Orthostatic Hypotension
-Continue IVFs
-Continue use of compression stocking
-Add Abdominal binder
-Continue Midodrine
Metastatic Breast Cancer
-Consult Oncology
GERD
-Continue Protonix and Pepcid
COPD, no acute exacerbation
-Continue Breo
Anxiety/Depression
-Continue Celexa, Bupropion and Ativan
Chronic Pain with Opioid Dependence
-Continue oxycodone as prior to admission
-Continue gabapentin
DVT proph: Lovenox
Code Status: DNR
[2023-08-27] MEDS: ROXICODONE 5 MG PO (23:39)
[2023-08-28] VITALS (11 sets, daily range): BP systolic 104–190; BP diastolic 60–97; PULSE 87–88; BMI 23.3
[2023-08-28] MEDS: ROXICODONE 5 MG PO ×4 (03:02→18:09)
[2023-08-28] MEDS: NSS 1000 IV ×2 (03:03→13:03)
[2023-08-28] MEDS: SYNTHROID 100 MCG PO (06:20)
[2023-08-28 07:06] LABS: Mean Corp Hgb Conc. 33.3 g/dL (33.0-37.0); Mean Corpuscular Hgb 31.1 pg (27.0-31.0); Mean Corpuscular Volume 93.3 fL (81.0-99.0); Mean Platelet Volume 9.9 fL (7.4-10.4); Platelet Count 255 10^3/uL (130-400); Red Blood Cell Count 3.86 10^6/uL (4.20-5.40); Red Cell Dist. Width 13.1 % (11.5-14.5); White Blood Cell Count 10.6 10^3/uL (4.8-10.8)
[2023-08-28 07:16] LABS: Blood Urea Nitrogen 8 mg/dl (7-17); Calcium 8.2 mg/dl (8.4-10.2); Carbon Dioxide 22 mmol/L (22-30); Chloride 109 mmol/L (98-107); Estimated Creatinine Clearance 60 ml/min; Glucose 93 mg/dl (70-99); Potassium 3.7 mmol/L (3.5-5.1); Sodium 134 mmol/L (135-145); eGFR > 60.00
[2023-08-28] MEDS: SYMBICORT 160/4.5 MCG INHALER 2 PUFF INH (08:10)
--- NOTE | 2023-08-28 09:09 | W.PN.HOSP.TC ---
Addendum entered and electronically signed by Doug Hogan MD 08/28/23 20:33:
Started back on Xanax Q 6 hr prn to avoid withdrawal but cautious with side effects as well (she says she takes benzo q4 hr at home). Also obtained EKG and QTc prolonged so d/c escitalopram. Will repeat EKG in am, keep in telemetry, and avoid any
meds that prolong QTc.
Original Note:
Today's Communication/Plan
-
Check orthostatic, IVF, Midodrine, Echo
Assessment / Plan
Assessment / Plan
Physical exam:
General: Chronically ill
HEENT: Normocephalic, Atraumatic and Moist Mucous Membranes
Respiratory: Clear to Auscultation; Negative Wheezes, Rales or Rhonchi
Cardiac: Regular Rhythm and S1/S2
GI: Soft, Nontender and Nondistended
Musculoskeletal: No Clubbing, No Cyanosis and No Edema
Neuro: Awake, Alert and Oriented
Psych: Calm
A/P:
Syncope presumably secondary to Orthostatic Hypotension
-Continue IVFs
-Continue use of compression stocking
-Add Abdominal binder
-Continue Midodrine
-Neuro eval given episode of confusion after syncope
-Obtain echo for further eval
-PT OT eval
Metastatic Breast Cancer
-Consult Oncology
GERD
-Continue Protonix and Pepcid
COPD, no acute exacerbation
-Continue Breo
Anxiety/Depression
-Continue Celexa, Bupropion and Ativan
Chronic Pain with Opioid Dependence
-Continue oxycodone as prior to admission
-Continue gabapentin
DVT proph: Lovenox
Code Status: She wants to be full code
Anticipated Discharge: 24 - 48 hours
Subjective/Interval History
-
Date of Service: August 28, 2023
Patient very anxious and weak overall. Alert and oriented today. No cp, no n/v. No h/a or blurry vision.
Objective Data
-
Labs:
Laboratory Results
08/28/23
06:36
WBC 10.6
Hgb 12.0
Hct 36.0 L
Plt Count 255
Sodium 134 L
Potassium 3.7
Chloride 109 H
Carbon Dioxide 22
BUN 8
Creatinine 0.6
Glucose 93
Calcium 8.2 L
Vital Signs:
Vital Signs
Temp Pulse Resp BP Pulse Ox
98.1 F 86 16 104/65 96
08/28/23 03:12 08/28/23 08:14 08/28/23 08:14 08/28/23 03:12 08/28/23 08:14
I&O
08/27/23 08/28/23 08/29/23
06:59 06:59 06:59
Intake Total 240 / 240
Balance 240 / 240
Review of Systems
-
All other systems: Reviewed and negative
[2023-08-28] MEDS: PROTONIX 40 MG PO ×2 (09:25→20:30)
[2023-08-28] MEDS: LEXAPRO 10 MG PO (09:25)
[2023-08-28] MEDS: WELLBUTRIN XL (24 hour extended release) 150 MG PO (09:25)
[2023-08-28] MEDS: NEURONTIN 200 MG PO (09:25)
[2023-08-28] MEDS: HIPREX 1 GRAM PO ×2 (09:25→20:30)
[2023-08-28] MEDS: ProAmatine PO ×2 (10:23→23:06)
[2023-08-28] MEDS: XANAX 0.25 MG PO ×3 (11:01→20:30)
--- NOTE | 2023-08-28 12:45 | CM ---
Patient seen bedside, initial assessment completed. Patient reports she lives with her in a two story home, patient reports she uses a stair lift up the stairs. Patient reports she has a walker and wheelchairs for upstairs and downstairs.
Patient reports she was just discharged last week from [facility], patient reports she has been to a SNF after a hip replacement but cannot remember where. Patient confirms PCP Dr. Horvath, pharmacy [facility]. CM discussed PT recommendation of home
health, patient reports she does not feel like she needs [facility] at this time as she was just discharged and is not sure what else they can do for her. Patient reports her will provide transportation home. CM will continue to follow for
discharge planning needs.
Plan; home no needs, declining VN at this time.
[2023-08-28] MEDS: ProAmatine 10 MG PO (17:00)
--- NOTE | 2023-08-28 17:07 | CON.ONC ---
Impression
Impression
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
Plan
Plan
hold ORSERDU oral therapy-- cardiology re-evalaution--
Patient History
History of Present Illness
unfortunate 78yo WF admitted with recurrent orthostasis / dehydration with hx of relapsed breast carcinoma with liver and bones diagnnosed in late October 2021. w/ liver biopsy ER+, NM neg, HER2 low/1+ breast cancer. She started letrozole/Ibrance in
mid November 2021. CA27-29 was elevated to 91.8 when checked on November 15, 2021 but with liver progression was switched to ESR1 mutation specific estrogen antagonist oral therapy with Orserdu 05/2023 for which she has had stable disease as noted on recent
PET scan 08/2023 though she has incurred recurrent issues of orthostasis for which clear etiology unclear ( could not find data of CV toxicity with her meds). Her breast cancer hx significant for left breast stage 2A lobular breast carcinoma treated
with systemic anastrozole from 1996 til 2001 and 2nd breast primary stage 1 right breast cancer for similar HR receptor pos IDC with node pos disease for which she received AC adjuvant chemotherapy 2001 f/b adj tamoxifen
Past-Medical/Surgical History
Osteoporosis
Depression
h/o DVT while on Tamoxifen
Hypothyroidism
Hyperlipidemia
Hepatitis B
Rotator cuff tear
Appendectomy
Ovarian cystectomy
bilateral THR
Patient Medication
Medication Instructions Recorded Confirmed Last Taken Type
aspirin 81 mg tablet,delayed 81 mg PO QPM Blood clot 02/22/15 08/27/23 07/24/23 History
release prevention/tx
omeprazole 20 mg capsule,delayed 20 mg PO BID Gastrointestinal issue 02/22/15 08/27/23 07/25/23 History
release
melatonin 5 mg tablet 5 mg PO HS Sleep 04/27/21 08/27/23 07/24/23 History
Probiotic 755 mg PO QPM probiotic 04/27/23 08/27/23 07/24/23 History
denosumab 120 mg/1.7 mL (70 mg/mL) 120 mg SC Q4W Cancer 04/27/23 08/27/23 Unknown History
subcutaneous solution (Xgeva)
famotidine 40 mg tablet 40 mg PO QPM Gastrointestinal Issue 04/27/23 08/27/23 07/24/23 History
iron bis glycinate morenita 28 mg 1 cap PO QPM Supplement 04/27/23 08/27/23 07/24/23 History
iron-vit C 60 mg-FA 400 mcg-B12
8mcg cap (Gentle Iron)
levalbuterol tartrate 45 2 puff inhalation R Q4HPRN PRN sob 04/27/23 08/27/23 Unknown History
mcg/actuation aerosol inhaler
Ellura 36 mg PO QPM Urinary Issue 05/21/23 08/27/23 07/24/23 History
acetaminophen 650 mg 1,300 mg PO BIDPRN PRN mild pain 05/21/23 08/27/23 05/20/23 History
tablet,extended release
bupropion HCl 150 mg 24 hr tablet, 150 mg PO DAILY Mental 05/21/23 08/27/23 07/25/23 History
extended release Health/Anxiety
calcium carbonate 500 mg calcium 500 mg PO BID Supplement 05/21/23 08/27/23 07/25/23 History
(1,250 mg) tablet
cholecalciferol (vitamin D3) 50 75 mcg PO DAILY Supplement 05/21/23 08/27/23 07/25/23 History
mcg (2,000 unit) tablet
docusate sodium 100 mg capsule 100 mg PO BID PRN Constipation 05/21/23 08/27/23 05/20/23 History
(Stool Softener)
fluticasone furoate 100 1 inh inhalation R DAILY 05/21/23 08/27/23 07/25/23 History
mcg-vilanterol 25 mcg/dose Lung/Breathing Issues
inhalation powder (Breo Ellipta)
gabapentin 100 mg capsule 200 mg PO DAILY Pain 05/21/23 08/27/23 07/25/23 History
glucosamine sulfate 500 mg tablet 500 mg PO QPM Supplement 05/21/23 08/27/23 07/24/23 History
(Glucosamine)
lorazepam 0.5 mg tablet 0.5 mg PO HS PRN anxiety 05/21/23 08/27/23 05/19/23 History
sennosides 8.6 mg tablet (Senokot) 8.6 mg PO BID PRN Constipation 05/21/23 08/27/23 05/20/23 History
simvastatin 40 mg tablet 40 mg PO QPM High Cholesterol 05/21/23 08/27/23 07/24/23 History
therapeutic multivitamin 1 tab PO DAILY Supplement 05/21/23 08/27/23 07/25/23 History
Phosphorus 200 mg PO DAILY 07/25/23 08/27/23 07/25/23 History
gabapentin 100 mg capsule 300 mg PO QPM 07/25/23 08/27/23 07/24/23 History
methenamine hippurate 1 gram tablet 1 g PO BID Infection 07/25/23 08/27/23 07/25/23 History
midodrine 10 mg tablet 10 mg PO TID Blood Pressure 07/25/23 08/27/23 07/25/23 12:00 History
oxycodone 5 mg tablet 5 mg PO Q6H Pain 07/25/23 08/27/23 07/25/23 13:30 History
levothyroxine 100 mcg capsule 100 mcg PO DAILY #30 caps 07/28/23 08/27/23 Unknown Rx
elacestrant 86 mg tablet (Orserdu) 172 mg PO DAILY 08/27/23 08/27/23 Unknown History
escitalopram oxalate 10 mg tablet 10 mg PO DAILY Mental 08/27/23 08/27/23 Unknown History
Health/Anxiety
Active Medications
Generic Name Dose Route Start Last Admin
Trade Name Freq PRN Reason Stop Dose Admin
Acetaminophen 650 mg 08/28/23 02:08
Acetaminophen 325 Mg Tablet PO 09/25/23 02:07
Q4HPRN PRN
mild pain/ fever>100.5F
Alprazolam 0.25 mg 08/28/23 15:00
Alprazolam 0.25 Mg Tablet PO 09/25/23 14:59
Q6H DARRELL
Atorvastatin Calcium 20 mg 08/28/23 18:00
Atorvastatin (Lipitor) 20 Mg Tablet PO 09/25/23 17:59
QPM DARRELL
Budesonide/Formoterol Fumarate 2 puff 08/28/23 08:00 08/28/23 08:10
Symbicort Inhaler 160/4.5 INH 09/25/23 07:59 2 puff
R BID DARRELL Administration
Bupropion HCl 150 mg 08/28/23 08:00 08/28/23 09:25
Bupropion (24hr) Extended Release 150 Mg Tablet PO 09/25/23 07:59 150 mg
DAILY DARRELL Administration
Enoxaparin Sodium 40 mg 08/28/23 18:00
Enoxaparin Sodium 40 Mg/0.4 Ml Syringe SC 09/25/23 17:59
QPM DARRELL
Escitalopram Oxalate 10 mg 08/28/23 08:00 08/28/23 09:25
Escitalopram 10 Mg Tablet PO 09/25/23 07:59 10 mg
DAILY DARRELL Administration
Famotidine 40 mg 08/28/23 18:00
Famotidine 40 Mg Tablet PO 09/25/23 17:59
QPM DARRELL
Gabapentin 200 mg 08/28/23 08:00 08/28/23 09:25
Gabapentin 100 Mg Capsule PO 09/25/23 07:59 200 mg
DAILY DARRELL Administration
Gabapentin 300 mg 08/28/23 18:00
Gabapentin 100 Mg Capsule PO 09/25/23 17:59
QPM DARRELL
Heparin Sodium (Porcine) 500 unit 08/28/23 07:06 08/28/23 13:24
Heparin Flush Pf (100 Unit/Ml) 5 Ml Syringe IV 09/25/23 07:05 500 unit
PRN PRN Administration
SUBQ PORT FLUSH
Sodium Chloride 1,000 mls @ 100 mls/hr 08/28/23 02:08 08/28/23 13:03
Nss IV 1,000 mls
.Q10H DARRELL Administration
Levothyroxine Sodium 100 mcg 08/28/23 07:00 08/28/23 06:20
Levothyroxine 100 Mcg Tablet PO 09/25/23 06:59 100 mcg
DAILY@0700 DARRELL Administration
Lorazepam 0.5 mg 08/28/23 02:08
Lorazepam 0.5 Mg Tablet PO 09/25/23 02:07
HS PRN
anxiety
Melatonin 5 mg 08/28/23 22:00
Melatonin 5 Mg Tablet PO 09/25/23 21:59
HS DARRELL
Methenamine Hippurate 1 gram 08/28/23 08:00 08/28/23 09:25
Methenamine Hippurate 1 Gram Tablet PO 1 gram
BID DARRELL Administration
Midodrine 10 mg 08/28/23 08:00 08/28/23 10:23
Midodrine 5 Mg Tablet PO 09/25/23 07:59 Not Given
TID DARRELL
Oxycodone HCl 5 mg 08/28/23 02:08 08/28/23 11:01
Oxycodone 5 Mg Regular Release Tablet PO 09/11/23 02:07 5 mg
Q6 DARRELL Administration
Pantoprazole Sodium 40 mg 08/28/23 08:00 08/28/23 09:25
Pantoprazole 40 Mg Delayed Release Tablet PO 09/25/23 07:59 40 mg
BID DARRELL Administration
Sodium Chloride 0 flush 08/28/23 03:00
Sodium Chloride 0.9% (Flush) Syringe IV 09/25/23 02:59
PER PROTOCOL DARRELL
Review of Systems
-
History Source: Patient
All Other Systems: Reviewed and Negative (other than frustration with recurrent episodes of syncope)
Physical Exam
-
General: Appears in Distress
HEENT: Moist Mucous Membranes
Cardiology: Normal Sinus Rhythm
Pulmonary: Clear
GI: Soft and Normal Bowel Sounds
Extremities: Pulses Present
Neurology: Non Focal
Labs
Lab Results
WBC 10.6 10^3/uL (4.8-10.8) 08/28/23 06:36
RBC 3.86 10^6/uL (4.20-5.40) L 08/28/23 06:36
Hgb 12.0 g/dL (12.0-16.0) 08/28/23 06:36
Hct 36.0 % (37.0-47.0) L 08/28/23 06:36
MCV 93.3 fL (81.0-99.0) 08/28/23 06:36
MCH 31.1 pg (27.0-31.0) H 08/28/23 06:36
MCHC 33.3 g/dL (33.0-37.0) 08/28/23 06:36
RDW 13.1 % (11.5-14.5) 08/28/23 06:36
Plt Count 255 10^3/uL (130-400) 08/28/23 06:36
MPV 9.9 fL (7.4-10.4) 08/28/23 06:36
Abs Immat Gran (auto) 0.0 10^3/uL (0-0.05) 08/27/23 19:31
Absolute Neuts (auto) 5.0 10^3/uL (1.4-6.5) 08/27/23 19:31
Absolute Lymphs (auto) 4.0 10^3/uL (1.2-3.4) H 08/27/23 19:31
Absolute Monos (auto) 1.1 10^3/uL (0.1-0.6) H 08/27/23 19:31
Absolute Eos (auto) 0.2 10^3/uL (0-0.7) 08/27/23 19:
Absolute Basos (auto) 0.1 10^3/uL (0-0.2) 08/27/23 19:
Immature Gran % 0.3 % (0-0.5) 08/27/23 19:
Neutrophils % 48.2 % (42.2-75.2) 08/27/23
Lymphocytes % 38.4 % (20.5-51.1) 08/27/23
Monocytes % 10.6 % (1.7-9.3) H 08/27/23:
Eosinophils % 1.9 % (0-6) 08/27/23
Basophils % 0.6 % (0-2) 08/27/23:
Creatinine 0.6 mg/dL (0.6-1.0) 08/28/23 06:36
Vital Signs
Vital Signs
Temp Pulse Resp BP Pulse Ox
98.4 F 86 18 111/60 94
08/28/23 15:35 08/28/23 15:35 08/28/23 15:35 08/28/23 15:35 08/28/23 15:35
[2023-08-28] MEDS: COMPAZINE 10 MG IV (18:08)
[2023-08-28] MEDS: LIPITOR 20 MG PO (18:09)
[2023-08-28] MEDS: PEPCID 40 MG PO (18:09)
[2023-08-28] MEDS: LOVENOX 40 MG SC (18:10)
[2023-08-28] MEDS: NEURONTIN 300 MG PO (18:10)
--- NOTE | 2023-08-28 19:45 | PTCARENOTE ---
Patient fell out of bed. Found on floor. Assisted back to bed. Bed alarm in place. House OUTSIDE COLLECTOR and hospitalist made aware. House OUTSIDE COLLECTOR to come and evaluate patient. Patient states she hit the back of her head. Patient is presently AAOx3, forgetful and no
complaints of pain. Will order medsitter and continue to monitor closely.
--- NOTE | 2023-08-28 20:03 | W.PN.UPDATE ---
Addendum entered and electronically signed by GERMAIN De Oliveira 08/29/23 04:24:
error: patient is not on Melody chair with 4 bed side rails
placed on Bed alarm and Bed sitter.
Original Note:
Update Note
Progress Note Update
At 1935, RN notified OCC MED PHYSICIAN patient had a unwitnessed fall. upon Evaluation patient states she was trying to to go to the bathroom, and she slipped out of the bed and fell and hit her back of the head, unsure if she hit her head on the floor or the
rails of the bed. Patient is AAOX3. able to follow commands, strength 4/4 upper and lower extremities. neurochecks wnl. Will order CT scan to rule out any bleeds. neurochecks. Patient denies any pain, chills or shortness of breath.
CT negative for bleed. will continue neurochecks, will do CT scan if neuro changes
placed on Melody chair with 4 bedside rails restraints.
[2023-08-28] MEDS: SYMBICORT 160/4.5 MCG INHALER INH (21:05)
[2023-08-29] MEDS: ROXICODONE 5 MG PO ×3 (00:04→11:55)
[2023-08-29] MEDS: NSS 1000 IV (01:16)
[2023-08-29] MEDS: XANAX PO (03:49)
[2023-08-29 05:05] LABS: Hematocrit 36.5 % (37.0-47.0); Hemoglobin 11.9 g/dL (12.0-16.0); Mean Corp Hgb Conc. 32.6 g/dL (33.0-37.0); Mean Corpuscular Hgb 31.4 pg (27.0-31.0); Mean Corpuscular Volume 96.3 fL (81.0-99.0); Mean Platelet Volume 10.2 fL (7.4-10.4); Platelet Count 221 10^3/uL (130-400); Red Blood Cell Count 3.79 10^6/uL (4.20-5.40); Red Cell Dist. Width 12.9 % (11.5-14.5); White Blood Cell Count 7.3 10^3/uL (4.8-10.8)
[2023-08-29 05:14] VITALS: BP 144/70; BMI 23.4
[2023-08-29 05:29] LABS: Blood Urea Nitrogen 3 mg/dl (7-17); Calcium 8.4 mg/dl (8.4-10.2); Carbon Dioxide 22 mmol/L (22-30); Chloride 109 mmol/L (98-107); Estimated Creatinine Clearance 60 ml/min; Glucose 91 mg/dl (70-99); Potassium 3.5 mmol/L (3.5-5.1); Sodium 139 mmol/L (135-145); eGFR > 60.00
[2023-08-29] MEDS: SYNTHROID 100 MCG PO (06:14)
[2023-08-29] MEDS: SYMBICORT 160/4.5 MCG INHALER 2 PUFF INH (07:44)
[2023-08-29 07:49] VITALS: BP 156/73
[2023-08-29 08:00] VITALS: BP 116/79; BP 152/62; BP 169/104; PULSE 60; PULSE 62; PULSE 65
--- NOTE | 2023-08-29 08:03 | W.PN.ONC2 ---
Today's Communication / Plan
-
If still orthostatic, consult cardiology.
Do not suspect that this is secondary to elacestrant but reasonable to hold it for a week or so just to make sure her blood pressure stabilizes before restarting.
She was scheduled for follow-up yesterday with Dr. Briones. Appointment was canceled and will need to be rescheduled presumably for next week
Blood pressure seems to be improved with midodrine.
Impression
Impression
Metastatic breast cancer ESR1+ with liver/bone mets stable on current therapies readmitted with orthostasis/syncope
Plan
Plan
Hold ORSERDU (elacestrant) oral therapy for her ESR + metastatic breast cancer.
Recent PET scan on 08/23 so the mixed response. CA 27/29 also remains relatively stable on current therapy suggesting relative stable disease (a relatively favorable result from an oncologic perspective).
[place] trial which was the registration trial for this therapy did not report significant orthostatic hypotension or syncope as a side effect.
Recommend cardiology re-evalaution.
Subjective/Objective
Chief Complaint
ACS oncology follow-up
Subjective
No specific new complaints. Concerned about blood pressure could be related to her cancer therapy.
Vital Signs:
Vital Signs
Temp Pulse Resp BP Pulse Ox
97.6 F 60 16 156/73 99
08/29/23 07:49 08/29/23 07:49 08/29/23 07:49 08/29/23 07:49 08/29/23 07:49
Lab Results:
Laboratory Data
WBC 7.3 10^3/uL (4.8-10.8) 08/29/23 04:28
Hgb 11.9 g/dL (12.0-16.0) L 08/29/23 04:28
Plt Count 221 10^3/uL (130-400) 08/29/23 04:28
eGFR > 60.00 08/29/23 04:28
Physical Exam
HEENT: No Jaundice
Cardiology: S1 and S2
Pulmonary: Clear
GI: Soft
[2023-08-29] MEDS: ProAmatine 10 MG PO (08:35)
[2023-08-29] MEDS: WELLBUTRIN XL (24 hour extended release) 150 MG PO (08:37)
[2023-08-29] MEDS: HIPREX 1 GRAM PO (08:37)
[2023-08-29] MEDS: XANAX 0.25 MG PO ×2 (08:38→15:36)
[2023-08-29] MEDS: PROTONIX 40 MG PO (08:38)
[2023-08-29] MEDS: NEURONTIN 200 MG PO (08:39)
--- NOTE | 2023-08-29 10:57 | W.PN.HOSP.TC ---
Addendum entered and electronically signed by Chris Stauffer DO 08/30/23 13:31:
Unclear if orthostatic hypotension due to autonomic dysfunction versus other causes.
Addendum entered and electronically signed by Chris Stauffer, 08/30/23 13:21:
Moderate protein/calorie malnutrition
Addendum entered and electronically signed by Chris Stauffer DO 08/29/23 15:04:
ACTH stimulation test was done and results show that her adrenal glands are functioning fine.
Discussed with patient and her and they would like to go home today.
Recommend continuing midodrine, teds stockings, abdominal binder on discharge.
Primary care doctor can consider changing midodrine to [place] if her orthostatic symptoms persist. Discussed with patient and .
Original Note:
Today's Communication/Plan
-
ACTH stim test
Assessment / Plan
Assessment / Plan
Gen-AAOx3, NAD
HEENT-NC, AT, anicteric, clear oral mm
Neck-supple
CV-reg, no M, +S1/S2
Lungs-clear B/L
Abd-soft, NT, ND
Ext-no edema
Musculoskeletal-no cyanosis, clubbing
Skin-warm and dry
Neuro-grossly non-focal
Psych-calm, cooperative
Syncope presumably secondary to Orthostatic Hypotension -check ACTH stim test, rule out adrenal insufficiency.
-Continue use of compression stocking, Abdominal binder
-Continue Midodrine 3 times daily
-Neuro eval given episode of confusion after syncope
-Echocardiogram shows normal biventricular size and systolic function without regional wall motion abnormality, stage I diastolic dysfunction. Moderate TR. Mild pulmonary hypertension.
-PT OT eval -Home health recommended.
Hyponatremia -present on admission. Improved.
Metastatic Breast Cancer
-Consult Oncology
GERD
-Continue Protonix and Pepcid
COPD, no acute exacerbation
-Continue Breo
Anxiety/Depression
-Continue Celexa, Bupropion and Ativan
Chronic Pain with Opioid Dependence
-Continue oxycodone as prior to admission
-Continue gabapentin
DVT proph: Lovenox
Full code
Dispo -possible discharge later today if stable.
Anticipated Discharge: Today
Subjective/Interval History
-
Date of Service: August 29, 2023
Patient seen and examined. Eager to go home. No symptoms currently. at the bedside. No complaints.
Objective Data
-
Labs:
Laboratory Results
08/29/23
04:28
WBC 7.3
Hgb 11.9 L
Hct 36.5 L
Plt Count 221
Sodium 139
Potassium 3.5
Chloride 109 H
Carbon Dioxide 22
BUN 3 L
Creatinine 0.5 L
Glucose 91
Calcium 8.4
Vital Signs:
Vital Signs
Temp Pulse Resp BP Pulse Ox
97.6 F 60 16 116/79 99
08/29/23 07:49 08/29/23 08:35 08/29/23 07:49 08/29/23 08:35 08/29/23 07:49
I&O
08/28/23 08/29/23 08/30/23
06:59 06:59 06:59
Intake Total 240 / 240 900 / 900
Balance 240 / 240 900 / 900
Review of Systems
-
History Source: Patient
All other systems: Reviewed and negative
[2023-08-29 11:00] VITALS: BP 101/59; BP 114/59; BP 124/57; PULSE 68; PULSE 81; PULSE 87
[2023-08-29] MEDS: FLUSH (NSS) 1 FLUSH IV (11:11)
[2023-08-29] MEDS: NSS IV (11:15)
[2023-08-29 11:41] VITALS: BP 124/57
[2023-08-29] MEDS: CORTROSYN 0.25 MG IV (12:11)
[2023-08-29] MEDS: NSS (PRESERVATIVE FREE) 1 ML IV (12:11)
[2023-08-29 13:17] LABS: ACTH Stim Cortisol 0 Min 18.1 ug/dl
[2023-08-29 14:34] LABS: ACTH Stim Cortisol 60 Min 42.9 ug/dl
[2023-08-29 14:39] LABS: ACTH Stim Cortisol 30 Min 36.3 ug/dl
--- NOTE | 2023-08-29 15:02 | W.DS.TRANS ---
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
-
Discharge Instructions:
Sleep Apnea Risk Low
Discharge Diagnosis/Procedures Orthostatic hypotension, syncope
Diet Regular
Activity With assistance
Driving Restrictions No driving
Bathing Restrictions None
Other Services VN
Instructions:
Stand-Alone Forms:
Changes to Home Medications: No
Discharge Medications:
DC Medications w/original date entered in [facility]
aspirin 81 mg tablet,delayed release 81 mg PO QPM Blood clot prevention/tx 02/22/15
omeprazole 20 mg capsule,delayed release 20 mg PO BID Gastrointestinal issue 02/22/15
melatonin 5 mg tablet 5 mg PO HS Sleep 04/27/21
Probiotic 755 mg PO QPM probiotic 04/27/23
denosumab 120 mg/1.7 mL (70 mg/mL) subcutaneous solution (Xgeva) 120 mg SC Q4W Cancer 04/27/23
famotidine 40 mg tablet 40 mg PO QPM Gastrointestinal Issue 04/27/23
iron bis glycinate morenita 28 mg iron-vit C 60 mg-FA 400 mcg-B12 8mcg cap (Gentle Iron) 1 cap PO QPM Supplement 04/27/23
levalbuterol tartrate 45 mcg/actuation aerosol inhaler 2 puff inhalation R Q4HPRN PRN sob 04/27/23
Ellura 36 mg PO QPM Urinary Issue 05/21/23
acetaminophen 650 mg tablet,extended release 1,300 mg PO BIDPRN PRN mild pain 05/21/23
bupropion HCl 150 mg 24 hr tablet, extended release 150 mg PO DAILY Mental Health/Anxiety 05/21/23
calcium carbonate 500 mg calcium (1,250 mg) tablet 500 mg PO BID Supplement 05/21/23
cholecalciferol (vitamin D3) 50 mcg (2,000 unit) tablet 75 mcg PO DAILY Supplement 05/21/23
docusate sodium 100 mg capsule (Stool Softener) 100 mg PO BID PRN Constipation 05/21/23
fluticasone furoate 100 mcg-vilanterol 25 mcg/dose inhalation powder (Breo Ellipta) 1 inh inhalation R DAILY Lung/Breathing Issues 05/21/23
gabapentin 100 mg capsule 200 mg PO DAILY Pain 05/21/23
glucosamine sulfate 500 mg tablet (Glucosamine) 500 mg PO QPM Supplement 05/21/23
lorazepam 0.5 mg tablet 0.5 mg PO HS PRN anxiety 05/21/23
sennosides 8.6 mg tablet (Senokot) 8.6 mg PO BID PRN Constipation 05/21/23
simvastatin 40 mg tablet 40 mg PO QPM High Cholesterol 05/21/23
therapeutic multivitamin 1 tab PO DAILY Supplement 05/21/23
Phosphorus 200 mg PO DAILY 07/25/23
gabapentin 100 mg capsule 300 mg PO QPM 07/25/23
methenamine hippurate 1 gram tablet 1 g PO BID Infection 07/25/23
midodrine 10 mg tablet 10 mg PO TID Blood Pressure 07/25/23
oxycodone 5 mg tablet 5 mg PO Q6H Pain 07/25/23
levothyroxine 100 mcg capsule 100 mcg PO DAILY #30 caps 07/28/23
escitalopram oxalate 10 mg tablet 10 mg PO DAILY Mental Health/Anxiety 08/27/23
Home Medication Changes
Pending Results: No
[2023-08-29 15:21] VITALS: BP 149/88
[2023-08-29] MEDS: ProAmatine PO (15:36)
--- NOTE | 2023-08-29 16:58 | CM ---
CM following re: d/c
Chart reviewed
Pt is medically stable for d/c
Per PT/OT assessment, post d/c recommendation is for HH
Pt is declining HH stating she was recently discharged from [facility] and doesn't feel like there was any additional benefit
Pt spouse to transport patient home at time of d/c
PLAN; d/c home no needs
--- NOTE | 2023-08-30 13:12 | PN.CDI ---
CDI
- -
CDI:
Physician Documentation Request
Admit Date: 08/27/23 23:29
Dear Doctor Eh,
Patient admitted for orthostatic hypotension.
08/28 Nutrition Assessment: 'Due to the weight loss and intakes estimated to be <75% estimated needs for > 1 month, pt meeting criteria for moderate protein/calorie malnutrition (ASPEN/AND guidelines, chronic illness).'
Based on the information, which of the following most accurately represents the patient's nutritional status?
Moderate protein calorie malnutrition
Other
Use of terms such as suspected, likely, concern for, or probable (associated with a specific diagnosis that is being evaluated, monitored, or treated as if it exists) are acceptable and can be coded in the inpatient setting, when documented at the
time of discharge.
Thank you,
Annita Leone RN, BSN
CDI Specialist
Available via [place] text
Please use your independent medical judgment in providing your response.
--- NOTE | 2023-08-30 13:19 | PN.CDI ---
CDI
- -
CDI:
Physician Documentation Request
Admit Date: 08/27/23 23:29
Dear Doctor Eh,
Patient admitted for orthostatic hypotension.
ED Physician Documentation: 'She has had several hospitalizations for similar symptoms...Patient is suffering from significant decline in health.'
H&P: 'Pt has had several episodes of orthostasis which her explains had previously been thought to be associated with her Orserdu which she was previously taking at the maximum dose. Her oncologist cut this back to half and she has still
been experiencing these symptoms.'
08/29 Oncology PN: 'Do not suspect that this is secondary to elacestrant'
Based on the above, could you clarify in the progress notes, the appropriate diagnosis, if significant, that supports the above abnormalities and additional evaluation, monitoring and/or treatment rendered:
Autonomic Dysfunction
Orthostatic hypotension
Other
Use of terms such as suspected, likely, concern for, or probable (associated with a specific diagnosis that is being evaluated, monitored, or treated as if it exists) are acceptable and can be coded in the inpatient setting, when documented at the
time of discharge.
Thank you,
Annita Leone RN, BSN
CDI Specialist
Available via [place] text
Please use your independent medical judgment in providing your response.
== END 2023-08-29 16:41 | disposition home or self-care (01) | DRG 74 ==
LOC: 4 EAST ACU 23:29
PROVIDERS: Emergency Medicine; Hospitalist; Physician Assistant Medical; ADMITTING PHYSICIAN Internal Medicine; ATTENDING PHYSICIAN Hospitalist; EMERGENCY PHYSICIAN Emergency Medicine; FAMILY PHYSICIAN Family Medicine; OTHER PHYSICIAN Internal Medicine Hematology & Oncology
DX: G90.9 Disorder of the autonomic nervous system, unspecified (principal); R64 Cachexia; C79.51 Secondary malignant neoplasm of bone; F11.20 Opioid dependence, uncomplicated; E87.1 Hypo-osmolality and hyponatremia; E44.0 Moderate protein-calorie malnutrition; I95.1 Orthostatic hypotension; Z87.891 Personal history of nicotine dependence; Z68.23 Body mass index [BMI] 23.0-23.9, adult; Z66 Do not resuscitate; C50.919 Malignant neoplasm of unspecified site of unspecified female breast; K21.9 Gastro-esophageal reflux disease without esophagitis; J44.9 Chronic obstructive pulmonary disease, unspecified; F32.A Depression, unspecified; F41.9 Anxiety disorder, unspecified; G89.29 Other chronic pain; E03.9 Hypothyroidism, unspecified; Z79.82 Long term (current) use of aspirin
CPT/HCPCS: 70450; 80048; 80053; 81003; 81015; 82533; 84484; 85025; 85027; 87086; 93005; 93306; 94640; 96360; 97161; 97165; 99285

== ENCOUNTER 2023-09-20 12:53 | Emergency (ER) | payer OTHER, SELFPAY ==
[2023-09-20 13:10] VITALS: BP 130/106
[2023-09-20 14:50] LABS: % Basophils 0.4 % (0-2); % Eosinophils 1.7 % (0-6); % Immature Granulocytes 0.3 % (0-0.5); % Lymphocytes 16.6 % (20.5-51.1); % Monocytes 12.3 % (1.7-9.3); % Neutrophils 68.7 % (42.2-75.2); Absolute Basophils 0.1 10^3/uL (0-0.2); Absolute Eosinophils 0.2 10^3/uL (0-0.7); Absolute Lymphocytes 2.3 10^3/uL (1.2-3.4); Absolute Monocytes 1.7 10^3/uL (0.1-0.6); Absolute Neutrophils 9.6 10^3/uL (1.4-6.5); Hematocrit 38.5 % (37.0-47.0); Mean Corp Hgb Conc. 33.8 g/dL (33.0-37.0); Mean Corpuscular Hgb 30.6 pg (27.0-31.0); Mean Corpuscular Volume 90.6 fL (81.0-99.0); Mean Platelet Volume 9.7 fL (7.4-10.4); Nucleated Red Blood Cells % 0 %; Platelet Count 245 10^3/uL (130-400); Red Blood Cell Count 4.25 10^6/uL (4.20-5.40); Red Cell Dist. Width 13.3 % (11.5-14.5)
[2023-09-20 15:00] VITALS: BP 121/67
[2023-09-20 15:02] LABS: ALT (SGPT) 40 U/L (0-35); AST (SGOT) 83 U/L (14-36); Albumin 3.3 g/dl (3.5-5.0); Alkaline Phosphatase 121 U/L (38-126); Blood Urea Nitrogen 10 mg/dl (7-17); Carbon Dioxide 32 mmol/L (22-30); Chloride 100 mmol/L (98-107); Glucose 116 mg/dl (70-99); Lipase 48 U/L (23-300); Potassium 4.1 mmol/L (3.5-5.1); Sodium 133 mmol/L (135-145); Total Bilirubin 0.6 mg/dl (0.2-1.3); eGFR > 60.00
--- NOTE | 2023-09-20 15:17 | ED.GENMED ---
History of Present Illness
General
Chief Complaint: Abdominal Symptoms
Time Seen by Provider: 09/20/23 15:03
Travel History
Have you had any contact with someone who has COVID-19?: No
Do you have any symptoms of coronavirus? Fever > 100 degrees, chills, cough, shortness of breath, sore throat, loss of taste or smell, muscle aches, or headache?: No
History of Present Illness
History of Present Illness:
78-year-old female with history of atrial fibrillation, metastatic breast cancer, hyperlipidemia, and COPD presents to the emergency department for evaluation of abdominal pain beginning this morning. Reports generalized pain, initially was in the
epigastrium now feels painful throughout the abdomen. Denies any associated fever, chills, sweats, nausea, vomiting, or diarrhea. She is concerned for bowel obstruction as she has not passed flatus or stool this morning but did have a large amount
of bowel movements yesterday. Denies any hematochezia or melena yesterday. Pain is mild to moderate currently. Prior abdominal surgery includes appendectomy and ovarian cystectomy
Past History
Past History
ED Past Medical History: Cancer (Metastatic breast cancer) and COPD
ED Past Surgical History: Appendectomy, Orthopedic and Other (b/l lumpectomy)
Social History
Tobacco: Former smoker
Alcohol: None
Drug: None
Personal:
Living: with family
Employment: Not employed
Family History
Family History: Other (n/c)
Review of Systems
Review of Systems
Allergies reviewed?: Yes
All Other Systems: ROS reviewed and negative except as documented in HPI and ROS
Phy Exam
Physical Exam
Physical Exam:
GEN: Well appearing, NAD, WDWN
Eyes: PERRLA, EOMs intact, no scleral icterus
HENT: NCAT, oral mucosa moist
Lungs: CTAB, no wheezes, rales, rhonchi, normal chest wall excursion
Chest: Port in the left upper chest wall
Cardiac: RRR, no M/R/G, no peripheral edema. Radial pulses 2+ bilat
Abdomen: Soft, generally tender to all 4 quadrants, no rigidity or peritoneal signs
Neuro: AO x 3
MSK: No gross deformity or ecchymosis.
Skin: No rashes, petechiae. Normal color, no pallor or jaundice.
Psych: Calm, cooperative, proper hygiene
Course
Orders/Labs/Results
Orders:
Orders
09/20/23 14:35
CMP [Comprehensive Metabolic Panel] Urgent
Complete Blood Count/With Diff Urgent
Lipase Urgent
09/20/23 15:17
CT Abd/Pel (IV only)-DH only Urgent
Comment:
Reason For Exam: generalized abd pain
Abnormal Lab Results
09/20/23
14:35
WBC 14.0 H 10^3/uL
(4.8-10.8)
Absolute Neuts (auto) 9.6 H 10^3/uL
(1.4-6.5)
Absolute Monos (auto) 1.7 H 10^3/uL
(0.1-0.6)
Lymphocytes % 16.6 L %
(20.5-51.1)
Monocytes % 12.3 H %
(1.7-9.3)
Sodium 133 L mmol/L
(135-145)
Carbon Dioxide 32 H mmol/L
(22-30)
Glucose 116 H mg/dl
(70-99)
AST 83 H U/L
(14-36)
ALT 40 H U/L
(0-35)
Total Protein 6.0 L g/dl
(6.3-8.2)
Albumin 3.3 L g/dl
(3.5-5.0)
09/20/23 14:35
09/20/23 14:35
Vital Signs
Initial and Last Documented VS:
Initial Vital Signs
Temp Pulse Resp BP Pulse Ox
98.2 F 66 16 130/106 99
09/20/23 13:10 09/20/23 13:10 09/20/23 13:10 09/20/23 13:10 09/20/23 13:10
Last Documented Vital Signs
Temp Pulse Resp BP Pulse Ox
98.2 F 72 21 121/67 97
09/20/23 13:10 09/20/23 17:15 09/20/23 17:15 09/20/23 15:00 09/20/23 16:45
MDM/Problems Addressed
MDM/Problems Addressed:
Imaging suggestive of constipation. I recommended the patient take MiraLAX and Colace as opposed to high potency laxatives given that she did have bowel movements yesterday. Advised against analgesics for pain as this will only slow intestinal
peristalsis.
*Critical Care Note
Total Time (30-74mins, 75-104mins- exclusive of procedures): Not Applicable
ED Attending Note
-
Portions of this chart may have been created with voice recognition software.� Occasional wrong word or��sound alike� substitutions may have occurred due to the inherent limitations of voice recognition software.
Discharge Plan
Departure
Patient Disposition: Home (Routine Discharge)
Date of Disposition: 09/20/23
Time of Disposition: 16:49
Patient with high blood pressure during this ER visit?: No
Discharge Problem:
Acute constipation
Instructions: Constipation, Adult (DC)
Prescriptions:
No Action
aspirin 81 MG tablet,delayed release (DR/EC)
81 mg PO QPM
omeprazole 20 MG capsule,delayed release(DR/EC)
20 mg PO BID
melatonin 5 MG tablet
5 mg PO HS
famotidine 40 mg Tablet
40 mg PO QPM
Gentle Iron 28 mg iron-60mg -400 mcg-8 mcg Capsule
1 cap PO QPM
Xgeva 120 mg/1.7 mL (70 mg/mL) Solution
120 mg SC Q4W
Probiotic
755 mg PO QPM
levalbuterol tartrate 45 mcg/actuation Hfa Aerosol Inhaler
2 puff INHALATION R Q4HPRN PRN (Reason: sob)
sennosides [Senokot] 8.6 mg Tablet
8.6 mg PO BID PRN (Reason: Constipation)
glucosamine sulfate [Glucosamine] 500 mg Tablet
500 mg PO QPM
therapeutic multivitamin Tablet
1 tab PO DAILY
simvastatin 40 mg Tablet
40 mg PO QPM
acetaminophen 650 mg Tablet Extended Release
1,300 mg PO BIDPRN PRN (Reason: mild pain)
lorazepam 0.5 mg Tablet
0.5 mg PO HS PRN (Reason: anxiety)
Patient Comments:
07/25/2023: last filled 05/31/23, 30 tabs for 30 days
calcium carbonate 500 mg calcium (1,250 mg) Tablet
500 mg PO BID
docusate sodium [Stool Softener] 100 mg Capsule
100 mg PO BID PRN (Reason: Constipation)
gabapentin 100 mg Capsule
200 mg PO DAILY
bupropion HCl 150 mg Tablet Extended Release 24 Hr
150 mg PO DAILY
cholecalciferol (vitamin D3) 50 mcg (2,000 unit) Tablet
75 mcg PO DAILY
fluticasone furoate-vilanterol [Breo Ellipta] 100-25 mcg/dose Blister With Device
1 inh INHALATION R DAILY
Patient Comments:
05/21/2023, patient states that they should take this every day but that they forget sometimes.
Ellura capsule
36 mg PO QPM
methenamine hippurate 1 gram tablet
1 g PO BID
gabapentin 100 mg capsule
300 mg PO QPM
oxycodone 5 mg tablet
5 mg PO Q6H
Patient Comments:
07/25/2023: last filled 07/20/23, 180 tabs for 30 days from [id number]
Rx Instructions:
@0000,0600,1200,1800
midodrine 10 mg tablet
10 mg PO TID
Phosphorus
200 mg PO DAILY
levothyroxine 100 mcg capsule
100 mcg PO DAILY Qty: 30 0RF
Rx Instructions:
dose decreased on this admission
escitalopram oxalate 10 mg Tablet
10 mg PO DAILY
Referrals:
Gely Horvath DO [Family Provider] -
Activity Restrictions/Additional Instructions:
Please try once daily MiraLAX in addition to twice daily Colace 100 mg
Interventions
Interventions:
*Risk Screen - Suicide Last Done: 09/20/23 14:12
*General Assessment Last Done: 09/20/23 14:12
*Neglect/Abuse Screening Last Done: 09/20/23 14:12
ED- Fall Risk Assessment Last Done: 09/20/23 14:12
*ED COVID-19 Vaccine History Last Done: 09/20/23 13:10
*Nursing Disposition Last Done: 09/20/23 17:30
JA-Stjmll-Bzsurqkyuq Assessment Last Done: 09/20/23 14:12
Discharge Date and Time
Discharge Date/Time: 09/20/23 17:30
--- NOTE | 2023-09-20 17:43 | VATNOTE ---
left subq power port deaccessed per protocol with 500units heparin infused prior to deaccessing.
== END 2023-09-20 17:30 | disposition home or self-care (01) ==
LOC: EMR 12:53
PROVIDERS: EMERGENCY PHYSICIAN Emergency Medicine; FAMILY PHYSICIAN Family Medicine
DX: K59.09 Other constipation (principal); Z87.891 Personal history of nicotine dependence
CPT/HCPCS: 99284; 74177; 80053; 83690; 85025; Q9967

== ENCOUNTER 2023-09-24 12:40 | Emergency (ER) | payer OTHER, SELFPAY ==
[2023-09-24 12:49] VITALS: BP 110/76
--- NOTE | 2023-09-24 15:51 | ED.GENMED ---
History of Present Illness
General
Chief Complaint: Abdominal Symptoms
Source: patient, records and spouse
Exam Limitations: none
Time Seen by Provider: 09/24/23 15:04
Nursing documentation reviewed up to this point in time: agreed with
Travel History
Have you had any contact with someone who has COVID-19?: No
Do you have any symptoms of coronavirus? Fever > 100 degrees, chills, cough, shortness of breath, sore throat, loss of taste or smell, muscle aches, or headache?: No
History of Present Illness
History of Present Illness:
Patient is a 78-year-old female with a history of metastatic breast cancer to bone and liver who presents from her physician's office for constipation. Patient had been nauseous and did vomit earlier in the day but at this time does not feel
nauseous. Patient denies any abdominal pain. Patient admits to abdominal pain when she was here last time was diagnosed with constipation. Patient has not taking any narcotics for pain. Patient had 2 small bowel movements prior to the ER.
Patient was sent by her PCP for an enema. Patient denies fever or chills, chest pain, shortness of breath, symptoms.
Past History
Past History
ED Past Medical History: Cancer (Metastatic breast cancer) and COPD
ED Past Surgical History: Appendectomy, Orthopedic and Other (b/l lumpectomy)
Social History
Tobacco: Former smoker
Alcohol: None
Drug: None
Personal:
Living: with family
Employment: Not employed
Family History
Family History: Other (n/c)
Review of Systems
Review of Systems
All Other Systems: ROS reviewed and negative except as documented in HPI and ROS
Constitutional: Reports no symptoms
Respiratory: Reports no symptoms
Cardiac: Reports no symptoms
ABD/GI: Reports abdominal pain, nausea, vomiting, constipated and anorexia
: Reports no symptoms
Musculoskeletal: Denies joint pain, neck pain or back pain
Skin: Reports no symptoms
Neurological: Reports no symptoms
Phy Exam
Physical Exam
Physical Exam:
Physical Exam
General: No apparent distress, alert and appropriate, appears ill but well nourished, well hydrated
HENT: Normocephalic, supple with no lymphadenopathy, no thyromegaly
Eyes: Clear sclera, conjuctiva without injection
Heart: Regular rhythm and rate. No S3, S4. No murmur.
Lungs: No respiratory distress, no stridor, lung sounds clear and equal bilaterally
Abdomen: Soft, minimal left lower quadrant tenderness without guarding or rebound, no organomegaly, BS good
Neuro: Alert and oriented x 3, CN II - XII intact, no motor focality
Skin: no rash. Pale
Psychiatric: well kept. interactive and cooperative
Extremities: No edema, cyanosis, tenderness
Scores
Heart Failure Risk
Heart Failure Risk Score: Not Applicable
Heart Score for Chest Pain Patients
STEMI patient?: Not applicable
Withdrawal Assessment of Alcohol
Withdrawal Assessment Completed?: Not applicable
Course
Orders/Labs/Results
Orders:
Orders
09/24/23 15:51
Complete Blood Count/With Diff Urgent
Comprehensive Metabolic Panel Urgent
09/24/23 16:02
0.9% Sodium Chloride 500 ml [Nss] 500 ml IV BOLUS
Ondansetron Injectable [Zofran] 4 mg IV NOW STA
09/24/23 16:03
Ondansetron Injectable [Zofran] 4 mg .ROUTE .STK-MED ONE
Vital Signs
Initial and Last Documented VS:
Initial Vital Signs
Temp Pulse Resp BP Pulse Ox
98.3 F 90 18 110/76 97
09/24/23 12:49 09/24/23 12:49 09/24/23 12:49 09/24/23 12:49 09/24/23 12:49
Last Documented Vital Signs
Temp Pulse Resp BP Pulse Ox
98.3 F 90 18 110/76 97
09/24/23 12:49 09/24/23 12:49 09/24/23 12:49 09/24/23 12:49 09/24/23 12:49
*Radiology
Radiology exam reviewed: other (na)
*Pulse Oximetry
Patient hypoxic: no
*EKG
Interpreted by ED Provider?: NA
*[employer] [place]er Interpretation
Rate: [place]er- N/A
*Critical Care Note
Total Time (30-74mins, 75-104mins- exclusive of procedures): Not Applicable
Update Note
Update Note:
Discussion with the patient and her . Patient is having bowel movements now and will hold off on the enema. Patient will start using daily MiraLAX and Metamucil. Patient does have Zofran at home and it works. Also instructed patient that
if going more than 2 days without a bowel movement that she should use magnesium citrate. Given the patient's albumin the patient has slight increased in calcium. Not enough to treat at this time.
ED Attending Note
-
Portions of this chart may have been created with voice recognition software.� Occasional wrong word or��sound alike� substitutions may have occurred due to the inherent limitations of voice recognition software.
Discharge Plan
Departure
Patient Disposition: Home (Routine Discharge)
Date of Disposition: 09/24/23
Time of Disposition: 16:20
Patient with high blood pressure during this ER visit?: No
Condition: Fair
Covid-19: Not Applicable
Discharge Problem:
Constipation
Instructions: Constipation, Adult (DC)
Prescriptions:
No Action
aspirin 81 MG tablet,delayed release (DR/EC)
81 mg PO QPM
omeprazole 20 MG capsule,delayed release(DR/EC)
20 mg PO BID
melatonin 5 MG tablet
5 mg PO HS
famotidine 40 mg Tablet
40 mg PO QPM
Gentle Iron 28 mg iron-60mg -400 mcg-8 mcg Capsule
1 cap PO QPM
Xgeva 120 mg/1.7 mL (70 mg/mL) Solution
120 mg SC Q4W
Probiotic
755 mg PO QPM
levalbuterol tartrate 45 mcg/actuation Hfa Aerosol Inhaler
2 puff INHALATION R Q4HPRN PRN (Reason: sob)
sennosides [Senokot] 8.6 mg Tablet
8.6 mg PO BID PRN (Reason: Constipation)
glucosamine sulfate [Glucosamine] 500 mg Tablet
500 mg PO QPM
therapeutic multivitamin Tablet
1 tab PO DAILY
simvastatin 40 mg Tablet
40 mg PO QPM
acetaminophen 650 mg Tablet Extended Release
1,300 mg PO BIDPRN PRN (Reason: mild pain)
lorazepam 0.5 mg Tablet
0.5 mg PO HS PRN (Reason: anxiety)
Patient Comments:
07/25/2023: last filled 05/31/23, 30 tabs for 30 days
calcium carbonate 500 mg calcium (1,250 mg) Tablet
500 mg PO BID
docusate sodium [Stool Softener] 100 mg Capsule
100 mg PO BID PRN (Reason: Constipation)
gabapentin 100 mg Capsule
200 mg PO DAILY
bupropion HCl 150 mg Tablet Extended Release 24 Hr
150 mg PO DAILY
cholecalciferol (vitamin D3) 50 mcg (2,000 unit) Tablet
75 mcg PO DAILY
fluticasone furoate-vilanterol [Breo Ellipta] 100-25 mcg/dose Blister With Device
1 inh INHALATION R DAILY
Patient Comments:
05/21/2023, patient states that they should take this every day but that they forget sometimes.
Ellura capsule
36 mg PO QPM
methenamine hippurate 1 gram tablet
1 g PO BID
gabapentin 100 mg capsule
300 mg PO QPM
oxycodone 5 mg tablet
5 mg PO Q6H
Patient Comments:
07/25/2023: last filled 07/20/23, 180 tabs for 30 days from [id number]
Rx Instructions:
@0000,0600,1200,1800
midodrine 10 mg tablet
10 mg PO TID
Phosphorus
200 mg PO DAILY
levothyroxine 100 mcg capsule
100 mcg PO DAILY Qty: 30 0RF
Rx Instructions:
dose decreased on this admission
escitalopram oxalate 10 mg Tablet
10 mg PO DAILY
Referrals:
UNKNOWN - PT DOES,NOT KNOW [Family Provider] -
Activity Restrictions/Additional Instructions:
Make sure to drink plenty of fluid and use your Zofran for nausea. Use MiraLAX and Metamucil daily. If you go more than 2 to 3 days without bowel movement use magnesium citrate 1 bottle which should be 300 mL. Continue present medications and
make sure to follow-up with your physician and oncologist as scheduled.
Interventions
Interventions:
*Risk Screen - Suicide Last Done: 09/24/23 12:49
*General Assessment Last Done: 09/24/23 12:49
*Neglect/Abuse Screening Last Done: 09/24/23 12:49
*ED COVID-19 Vaccine History Last Done: 09/24/23 12:49
[2023-09-24] MEDS: ZOFRAN 4 MG IV (16:10)
[2023-09-24] MEDS: NSS 500 IV (16:10)
[2023-09-24 16:21] VITALS: BP 170/88
[2023-09-24 16:32] LABS: % Basophils 0.6 % (0-2); % Eosinophils 0.7 % (0-6); % Immature Granulocytes 0.3 % (0-0.5); % Lymphocytes 20.4 % (20.5-51.1); % Monocytes 6.9 % (1.7-9.3); % Neutrophils 71.1 % (42.2-75.2); Absolute Basophils 0.1 10^3/uL (0-0.2); Absolute Eosinophils 0.1 10^3/uL (0-0.7); Absolute Lymphocytes 2.2 10^3/uL (1.2-3.4); Absolute Monocytes 0.7 10^3/uL (0.1-0.6); Absolute Neutrophils 7.7 10^3/uL (1.4-6.5); Hematocrit 37.3 % (37.0-47.0); Hemoglobin 12.6 g/dL (12.0-16.0); Mean Corp Hgb Conc. 33.8 g/dL (33.0-37.0); Mean Corpuscular Hgb 30.2 pg (27.0-31.0); Mean Corpuscular Volume 89.4 fL (81.0-99.0); Mean Platelet Volume 10.3 fL (7.4-10.4); Nucleated Red Blood Cells % 0 %; Platelet Count 304 10^3/uL (130-400); Red Blood Cell Count 4.17 10^6/uL (4.20-5.40); Red Cell Dist. Width 13.1 % (11.5-14.5); White Blood Cell Count 10.8 10^3/uL (4.8-10.8)
[2023-09-24 16:45] LABS: ALT (SGPT) 30 U/L (0-35); AST (SGOT) 37 U/L (14-36); Albumin 3.6 g/dl (3.5-5.0); Alkaline Phosphatase 172 U/L (38-126); Blood Urea Nitrogen 7 mg/dl (7-17); Calcium 9.4 mg/dl (8.4-10.2); Carbon Dioxide 27 mmol/L (22-30); Chloride 103 mmol/L (98-107); Glucose 106 mg/dl (70-99); Potassium 3.9 mmol/L (3.5-5.1); Sodium 134 mmol/L (135-145); Total Bilirubin 0.6 mg/dl (0.2-1.3); Total Protein 6.5 g/dl (6.3-8.2); eGFR > 60.00
[2023-09-24 17:30] VITALS: BP 156/89
== END 2023-09-24 18:00 | disposition home or self-care (01) ==
LOC: EMR 12:40
PROVIDERS: EMERGENCY PHYSICIAN Emergency Medicine; FAMILY PHYSICIAN Family Medicine
DX: K59.00 Constipation, unspecified (principal); R10.9 Unspecified abdominal pain; R11.2 Nausea with vomiting, unspecified; J44.9 Chronic obstructive pulmonary disease, unspecified; E78.5 Hyperlipidemia, unspecified; K21.9 Gastro-esophageal reflux disease without esophagitis; C50.912 Malignant neoplasm of unspecified site of left female breast; C50.911 Malignant neoplasm of unspecified site of right female breast; C79.51 Secondary malignant neoplasm of bone; C78.7 Secondary malignant neoplasm of liver and intrahepatic bile duct; K44.9 Diaphragmatic hernia without obstruction or gangrene; M19.90 Unspecified osteoarthritis, unspecified site; I48.91 Unspecified atrial fibrillation; E03.9 Hypothyroidism, unspecified; F41.9 Anxiety disorder, unspecified; F32.A Depression, unspecified; Z79.82 Long term (current) use of aspirin; Z96.643 Presence of artificial hip joint, bilateral; Z86.718 Personal history of other venous thrombosis and embolism; Z87.891 Personal history of nicotine dependence; Z88.0 Allergy status to penicillin
CPT/HCPCS: 99284; 96374; 96361; 80053; 85025

== ENCOUNTER → 2023-10-03 14:40 | Outpatient (REF) | payer OTHER, SELFPAY ==
[2023-10-03 14:45] LABS: % Basophils 0.5 % (0-2); % Eosinophils 2.6 % (0-6); % Immature Granulocytes 0.1 % (0-0.5); % Monocytes 9.2 % (1.7-9.3); % Neutrophils 66.6 % (42.2-75.2); Absolute Basophils 0.1 10^3/uL (0-0.2); Absolute Eosinophils 0.3 10^3/uL (0-0.7); Absolute Lymphocytes 2.2 10^3/uL (1.2-3.4); Hematocrit 40.1 % (37.0-47.0); Hemoglobin 13.1 g/dL (12.0-16.0); Mean Corp Hgb Conc. 32.7 g/dL (33.0-37.0); Mean Corpuscular Hgb 30.3 pg (27.0-31.0); Mean Corpuscular Volume 92.8 fL (81.0-99.0); Mean Platelet Volume 9.3 fL (7.4-10.4); Platelet Count 365 10^3/uL (130-400); Red Blood Cell Count 4.32 10^6/uL (4.20-5.40); Red Cell Dist. Width 13.7 % (11.5-14.5); White Blood Cell Count 10.6 10^3/uL (4.8-10.8)
[2023-10-03 15:42] LABS: ALT (SGPT) 23 U/L (0-35); AST (SGOT) 35 U/L (14-36); Albumin 3.5 g/dl (3.5-5.0); Alkaline Phosphatase 149 U/L (38-126); Blood Urea Nitrogen 11 mg/dl (7-17); Calcium 9.5 mg/dl (8.4-10.2); Carbon Dioxide 31 mmol/L (22-30); Chloride 99 mmol/L (98-107); Glucose 164 mg/dl (70-99); Potassium 3.3 mmol/L (3.5-5.1); Sodium 137 mmol/L (135-145); Total Bilirubin 0.2 mg/dl (0.2-1.3); Total Protein 6.2 g/dl (6.3-8.2); eGFR > 60.00
== END ==
LOC: OIDL 14:40
PROVIDERS: ATTENDING PHYSICIAN Internal Medicine Hematology & Oncology
DX: C50.912 Malignant neoplasm of unspecified site of left female breast (principal)
CPT/HCPCS: 80053; 85025

== ENCOUNTER → 2023-10-08 16:08 | Outpatient (REF) | payer OTHER, SELFPAY ==
[2023-10-08 14:00] LABS: ALT (SGPT) 22 U/L (0-35); AST (SGOT) 32 U/L (14-36); Albumin 3.5 g/dl (3.5-5.0); Alkaline Phosphatase 142 U/L (38-126); Blood Urea Nitrogen 10 mg/dl (7-17); Calcium 9.8 mg/dl (8.4-10.2); Carbon Dioxide 31 mmol/L (22-30); Chloride 98 mmol/L (98-107); Glucose 176 mg/dl (70-99); Potassium 3.5 mmol/L (3.5-5.1); Sodium 137 mmol/L (135-145); Total Bilirubin 0.2 mg/dl (0.2-1.3); Total Protein 6.1 g/dl (6.3-8.2); eGFR > 60.00
== END ==
LOC: OIDL 16:08
PROVIDERS: ATTENDING PHYSICIAN Internal Medicine Hematology & Oncology
DX: C50.912 Malignant neoplasm of unspecified site of left female breast (principal)
CPT/HCPCS: 80053

== ENCOUNTER → 2023-10-31 14:31 | Outpatient (REF) | payer OTHER, SELFPAY ==
[2023-10-31 15:02] LABS: % Basophils 0.6 % (0-2); % Immature Granulocytes 0.3 % (0-0.5); % Lymphocytes 24.4 % (20.5-51.1); % Monocytes 7.6 % (1.7-9.3); % Neutrophils 64.1 % (42.2-75.2); Absolute Basophils 0.1 10^3/uL (0-0.2); Absolute Eosinophils 0.2 10^3/uL (0-0.7); Absolute Lymphocytes 1.9 10^3/uL (1.2-3.4); Absolute Monocytes 0.6 10^3/uL (0.1-0.6); Absolute Neutrophils 5.1 10^3/uL (1.4-6.5); Hematocrit 37.2 % (37.0-47.0); Hemoglobin 12.2 g/dL (12.0-16.0); Mean Corp Hgb Conc. 32.8 g/dL (33.0-37.0); Mean Corpuscular Hgb 31.2 pg (27.0-31.0); Mean Corpuscular Volume 95.1 fL (81.0-99.0); Mean Platelet Volume 10.7 fL (7.4-10.4); Platelet Count 233 10^3/uL (130-400); Red Blood Cell Count 3.91 10^6/uL (4.20-5.40); Red Cell Dist. Width 14.7 % (11.5-14.5); White Blood Cell Count 7.9 10^3/uL (4.8-10.8)
[2023-10-31 15:42] LABS: ALT (SGPT) 25 U/L (0-35); AST (SGOT) 39 U/L (14-36); Albumin 3.2 g/dl (3.5-5.0); Alkaline Phosphatase 148 U/L (38-126); Blood Urea Nitrogen 10 mg/dl (7-17); Calcium 9.6 mg/dl (8.4-10.2); Carbon Dioxide 29 mmol/L (22-30); Chloride 98 mmol/L (98-107); Glucose 215 mg/dl (70-99); Potassium 3.8 mmol/L (3.5-5.1); Sodium 134 mmol/L (135-145); Total Bilirubin 0.4 mg/dl (0.2-1.3); Total Protein 5.7 g/dl (6.3-8.2); eGFR > 60.00
== END ==
LOC: OIDL 14:31
PROVIDERS: ATTENDING PHYSICIAN Internal Medicine Hematology & Oncology
DX: C50.912 Malignant neoplasm of unspecified site of left female breast (principal)
CPT/HCPCS: 80053; 85025

== ENCOUNTER → 2023-11-28 11:17 | Outpatient (REF) | payer OTHER, SELFPAY | LOC: PET 11:17 | PROVIDERS: ATTENDING PHYSICIAN Internal Medicine Hematology & Oncology | DX: C50.912 Malignant neoplasm of unspecified site of left female breast (principal) | CPT/HCPCS: 78815; A9552 ==

== ENCOUNTER → 2023-12-05 15:03 | Outpatient (REF) | payer OTHER, SELFPAY ==
[2023-12-05 11:07] LABS: % Basophils 0.1 % (0-2); % Immature Granulocytes 0.3 % (0-0.5); % Monocytes 7.2 % (1.7-9.3); % Neutrophils 84.4 % (42.2-75.2); Absolute Eosinophils 0.2 10^3/uL (0-0.7); Absolute Immature Granulocytes 0.1 10^3/uL (0-0.05); Absolute Lymphocytes 1.6 10^3/uL (1.2-3.4); Absolute Monocytes 1.6 10^3/uL (0.1-0.6); Absolute Neutrophils 18.9 10^3/uL (1.4-6.5); Hematocrit 42.2 % (37.0-47.0); Hemoglobin 13.8 g/dL (12.0-16.0); Mean Corp Hgb Conc. 32.7 g/dL (33.0-37.0); Mean Corpuscular Hgb 31.2 pg (27.0-31.0); Mean Corpuscular Volume 95.5 fL (81.0-99.0); Mean Platelet Volume 9.6 fL (7.4-10.4); Platelet Count 325 10^3/uL (130-400); Red Blood Cell Count 4.42 10^6/uL (4.20-5.40); Red Cell Dist. Width 14.6 % (11.5-14.5); White Blood Cell Count 22.4 10^3/uL (4.8-10.8)
[2023-12-05 11:29] LABS: ALT (SGPT) 80 U/L (0-35); AST (SGOT) 70 U/L (14-36); Albumin 3.4 g/dl (3.5-5.0); Alkaline Phosphatase 284 U/L (38-126); Blood Urea Nitrogen 19 mg/dl (7-17); Calcium 10.1 mg/dl (8.4-10.2); Carbon Dioxide 35 mmol/L (22-30); Chloride 93 mmol/L (98-107); Glucose 187 mg/dl (70-99); Potassium 3.4 mmol/L (3.5-5.1); Sodium 134 mmol/L (135-145); Total Bilirubin 0.5 mg/dl (0.2-1.3); Total Protein 6.1 g/dl (6.3-8.2); eGFR > 60.00
== END ==
LOC: OIDL 15:03
PROVIDERS: ATTENDING PHYSICIAN Internal Medicine Hematology & Oncology
DX: C50.912 Malignant neoplasm of unspecified site of left female breast (principal)
CPT/HCPCS: 80053; 85025